=== PATIENT | female | born 1995 | race Two or more races ===

== ENCOUNTER 2016-12-15 11:46 | Emergency (ER) | payer SELFPAY ==
[2016-12-15 11:51] VITALS: BP 115/72
--- NOTE | 2016-12-15 12:37 | ER Document Report ---
ED ENT - General Chief Complaint: Sinus Congestion Stated Complaint: COUGH,CONGESTION Time Seen by Provider: 12/15/16 12:17 Mode of Arrival: Ambulatory Information source: Patient Notes: 21 2 [age] year-old female presents to ED for cough cold congestion since Monday. Have a pack a day. She has been taken Tylenol sinus and Sudafed PE. TRAVEL OUTSIDE OF THE [place] IN LAST 30 DAYS: No - HPI Patient complains to provider of: Nose problem Onset: Other - Monday Onset/Duration: Gradual, Persistent Quality of pain: Achy Severity: Moderate Pain Level: 2 Location of pain: Nose, Sinus Associated symptoms: Cough, Runny nose, Sinus drainage Similar symptoms previously: Yes Recently seen / treated by doctor: No - Related Data Allergies/Adverse Reactions: No Known Allergies Allergy (Verified 12/15/16 12:29) Past Medical History - General Information source: Patient - Social History Smoking Status: Current Every Day Smoker Cigarette use (# per day): Yes - Half a pack a day Chew tobacco use (# tins/day): No Smoking Education Provided: Yes - Less than 1 minute Frequency of alcohol use: Occasional Drug Abuse: None Occupation: [employer] Lives with: Alone Family History: Arthritis, Hypertension, Malignancy Patient has suicidal ideation: No Patient has homicidal ideation: No - Past Medical History Cardiac Medical History: Reports: None Pulmonary Medical History: Reports: Hx Bronchitis EENT Medical History: Reports: None Neurological Medical History: Reports: None Endocrine Medical History: Reports: None Renal/ Medical History: Reports: None Malignancy Medical History: Reports: None GI Medical History: Reports: None Musculoskeltal Medical History: Reports None Skin Medical History: Reports None Psychiatric Medical History: Reports: None Traumatic Medical History: Reports: None Infectious Medical History: Reports: None Past Surgical History: Reports: Hx Oral Surgery, Other - Dr. face surgery 2 - Immunizations Hx Diphtheria, Pertussis, Tetanus Vaccination: Yes Review of Systems - Review of Systems Constitutional: Recent illness EENT: Nose discharge, Sinus discharge Cardiovascular: No symptoms reported Respiratory: Cough Gastrointestinal: No symptoms reported Genitourinary: No symptoms reported Female Genitourinary: No symptoms reported Musculoskeletal: No symptoms reported Skin: No symptoms reported Hematologic/Lymphatic: No symptoms reported Neurological/Psychological: No symptoms reported -: Yes All other systems reviewed and negative Physical Exam - Vital signs Vitals: Temp Pulse Resp BP Pulse Ox 97.8 F 87 18 115/72 96 12/15/16 11:49 12/15/16 11:49 12/15/16 11:49 12/15/16 11:49 12/15/16 11:49 Interpretation: Normal - General General appearance: Appears well, Alert - HEENT Head: Normocephalic, Atraumatic Eyes: Normal Pupils: PERRL Ears: Normal External canal: Normal Tympanic membrane: Normal Sinus: Normal Nasal: Purulent discharge, Swelling Mouth/Lips: Normal Pharynx: Post nasal drainage Neck: Normal - Respiratory Respiratory status: No respiratory distress Chest status: Nontender Breath sounds: Normal Chest palpation: Normal - Cardiovascular Rhythm: Regular Heart sounds: Normal auscultation Murmur: No - Abdominal Inspection: Normal Distension: No distension Bowel sounds: Normal Tenderness: Nontender Organomegaly: No organomegaly - Back Back: Normal, Nontender - Extremities General upper extremity: Normal inspection, Nontender, Normal color, Normal ROM , Normal temperature General lower extremity: Normal inspection, Nontender, Normal color, Normal ROM , Normal temperature, Normal weight bearing. No: Cailin's sign - Neurological Neuro grossly intact: Yes Cognition: Normal Orientation: AAOx4 [place] Coma Scale Eye Opening: Spontaneous [place] Coma Scale Verbal: Oriented [place] Coma Scale Motor: Obeys Commands Alejandro Coma Scale Total: 15 Speech: Normal Motor strength normal: LUE, RUE, LLE, RLE Sensory: Normal - Psychological Associated symptoms: Normal affect, Normal mood - Skin Skin Temperature: Warm Skin Moisture: Dry Skin Color: Normal Course - Vital Signs Vital signs: Temp Pulse Resp BP Pulse Ox 97.8 F 87 18 115/72 96 12/15/16 11:49 12/15/16 11:49 12/15/16 11:49 12/15/16 11:49 12/15/16 11:49 Discharge - Discharge Clinical Impression: Upper respiratory infection Qualifiers: URI type: unspecified URI Qualified Code(s): J06.9 - Acute upper respiratory infection, unspecified Condition: Stable Disposition: HOME, SELF-CARE Instructions: Family Physicians / Practices Additional Instructions: UPPER RESPIRATORY ILLNESS: You have a viral infection of the respiratory passages -- a "cold." This common infection causes nasal congestion, drainage, and often sore throat and cough. It is highly contagious. The disease usually lasts about 10 to 14 days. There is no "cure" for the viral infection -- it must run its course. If there is a complication, such as bacterial infection in the nose, sinuses, middle ear, or bronchial tubes, antibiotics may be required. The antibiotics won't affect the virus. Drink plenty of fluids. A humidifier may help. An expectorant medication or decongestant may make you more comfortable. Use acetaminophen or ibuprofen for fever or aches. See the doctor if fever persists over two days, if there is any significant worsening of your symptoms, or if you simply fail to improve as expected. DECONGESTANT MEDICATION: A decongestant medicine has been prescribed. Often this medicine is combined in the same tablet with an antihistamine or expectorant. This type of medicine is helpful in treating a bad cold or sinus condition, as well as in treatment of the nasal congestion of hay fever. It is not of much benefit for lung infections. Decongestant medicines are related to stimulants. They can cause an increase in blood pressure and heart rate. Persons with heart disease and high blood pressure should not take decongestants without discussing this with the physician. If you develop palpitations, chest pain, headache, or tremors, stop the medicine and consult your physician. COUGH-SUPPRESSANT & EXPECTORANT MEDICATION: You are to use a cough medication as needed for relief of symptoms. This medicine is a combination of an expectorant (to make the mucous thinner and more easily "coughed up") and a cough suppressant (to reduce the frequency of coughing). The cough-suppressant medicine is related to narcotics. You may experience mild nausea and sleepiness. Some patients who are very sensitive to narcotics may have stomach pain from this medicine. Taking the medicine with food reduces these side effects. Do not drive or work with machinery until you know how this medicine affects you. The expectorant should have no side effects. Iodine-containing expectorants (such as organidin) should not be taken by persons with active thyroid disease unless approved by your doctor. Call the doctor if you develop shortness of breath, hives, rash, itching, lightheadedness, or severe nausea and vomiting. USE OF ACETAMINOPHEN (Tylenol): Acetaminophen may be taken for pain relief or fever control. It's much safer than aspirin, offering a wider range of "safe" dosages. It is safe during . Some brand names are Tylenol, Panadol, Datril, Anacin 3, Tempra, and Liquiprin. Acetaminophen can be repeated every four hours. The following are maximum recommended dosages: >89 pounds or adults 650 mg to 900 mg Acetaminophen can be repeated every four hours. Maximum dose not to exceed 4000 mg a day. SMOKING: If you smoke, you should stop smoking. The tar and chemicals in cigarette smoke are harmful. Smoking has been shown to cause: emphysema chronic bronchitis lung cancer mouth and throat cancer stomach and pancreas cancer premature aging defects In addition, smoking increases ear and lung infections in children of smokers. FOLLOW-UP CARE: If you have been referred to a physician for follow-up care, call the physician s office for an appointment as you were instructed or within the next two days. If you experience worsening or a significant change in your symptoms, notify the physician immediately or return to the Emergency Department at any time for re-evaluation. Forms: Smoking Cessation Education, Return to Work
== END 2016-12-15 12:35 | disposition home or self-care (01) ==
LOC: ER 11:46
DX: J06.9 Acute upper respiratory infection, unspecified (principal); J34.89 Other specified disorders of nose and nasal sinuses; F17.210 Nicotine dependence, cigarettes, uncomplicated
CPT/HCPCS: 99283

== ENCOUNTER 2017-12-16 11:42 | Inpatient (IN) | payer SELFPAY ==
[2017-12-16] MEDS ORDERED: ONDANSETRON HCL INJ/PF 4 MG/2 ML SDV IV ONE ×2 (11:57→16:54)
--- NOTE | 2017-12-16 11:59 | ER Document Report ---
ED Medical Screen (RME) - General Chief Complaint: Nausea/Vomiting/Diarrhea Stated Complaint: VOMITING,DIARRHEA Time Seen by Provider: 12/16/17 11:53 Mode of Arrival: Ambulatory Information source: Patient Notes: 22-year-old female who injects fentanyl presents with complaints of nausea vomiting not being able to hold anything down. Patient states she used 3 days ago I have greeted and performed a rapid initial assessment of this patient. A comprehensive ED assessment and evaluation of the patient, analysis of test results and completion of the medical decision making process will be conducted by additional ED providers. PHYSICAL EXAMINATION: GENERAL: Frail-appearing female hypotensive HEAD: Atraumatic, normocephalic. EYES: Pupils equal round extraocular movements intact, conjunctiva are normal. ENT: Nares patent NECK: Normal range of motion Heart tachycardic but no murmur noted LUNGS: No respiratory distress Musculoskeletal: Normal range of motion NEUROLOGICAL: Normal speech, normal gait. PSYCH: Normal mood, normal affect. SKIN: Warm, Dry, normal turgor, no rashes or lesions noted. TRAVEL OUTSIDE OF THE [place] IN LAST 30 DAYS: No - Related Data Allergies/Adverse Reactions: No Known Allergies Allergy (Verified 12/16/17 11:43) Past Medical History Pulmonary Medical History: Reports: Hx Bronchitis Renal/ Medical History: Denies: Hx Peritoneal Dialysis Past Surgical History: Reports: Hx Oral Surgery, Other - Dr. face surgery 2 - Immunizations Hx Diphtheria, Pertussis, Tetanus Vaccination: Yes
--- NOTE | 2017-12-16 12:10 | ER Document Report ---
ED GI/ - General Chief Complaint: Nausea/Vomiting/Diarrhea Stated Complaint: VOMITING,DIARRHEA Time Seen by Provider: 12/16/17 11:53 Mode of Arrival: Ambulatory Information source: Patient Notes: 22-year-old normally healthy female IV fentanyl user injected afternoon that was witnessed by a friend to make sure she stays safe and became delirious with vomiting and diarrhea. She is dry heaving with persistent diarrhea today. She has a bilateral temporal frontal headache. She thinks she had a fever. She has mild shortness of breath that is not any worse when she lays down. She is tearful and wants to get off opiates, denies suicide ideation. 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 Hx "elevated BPM-- states heartrate.". Has tampon in because she started being bleeding but she is not sure where it is coming from. Denies STD history or risk of STD. No pelvic pain or discharge. BP ius now 103 systolic with IV infusing. EKG shows a rate of 98 normal sinus rhythm QT intervals 348 and QTc is 445. No dysuria but hx pyelonephritis. TRAVEL OUTSIDE OF THE [place] IN LAST 30 DAYS: No - Related Data Allergies/Adverse Reactions: No Known Allergies Allergy (Verified 12/16/17 12:19) Past Medical History - General Information source: Patient - Social History Smoking Status: Current Every Day Smoker Drug Abuse: None Lives with: Family Family History: Arthritis, Hypertension, Malignancy Pulmonary Medical History: Reports: Hx Bronchitis Renal/ Medical History: Denies: Hx Peritoneal Dialysis Past Surgical History: Reports: Hx Oral Surgery, Other - Dr. face surgery 2 - Immunizations Hx Diphtheria, Pertussis, Tetanus Vaccination: Yes Review of Systems - Review of Systems Constitutional: See HPI EENT: No symptoms reported Cardiovascular: No symptoms reported Respiratory: No symptoms reported Gastrointestinal: See HPI Genitourinary: No symptoms reported Female Genitourinary: No symptoms reported Musculoskeletal: No symptoms reported Skin: No symptoms reported Hematologic/Lymphatic: No symptoms reported Neurological/Psychological: See HPI Physical Exam - Vital signs Vitals: Temp Pulse Resp BP Pulse Ox 98.1 F 125 H 18 80/53 L 98 12/16/17 11:51 12/16/17 11:51 12/16/17 11:51 12/16/17 11:51 12/16/17 11:51 Interpretation: Hypotensive, Tachycardic - General General appearance: Alert Notes: pale - HEENT Head: Normocephalic, Atraumatic Eyes: Normal Conjunctiva: Normal. No: Icteric Pupils: PERRL Mucous membranes: Normal Pharynx: Erythema Neck: Supple. No: Lymphadenopathy - Respiratory Respiratory status: No respiratory distress Chest status: Nontender Breath sounds: Normal Chest palpation: Normal - Cardiovascular Rhythm: Regular Heart sounds: Normal auscultation Murmur: No Friction rub: No - Abdominal Inspection: Normal Distension: No distension Bowel sounds: Normal Tenderness: Nontender. No: Tender Organomegaly: No organomegaly. No: Hepatomegaly, Splenomegaly - Back Back: Normal, Nontender. No: CVA tenderness - Extremities General upper extremity: Normal inspection, Nontender, Normal color, Normal ROM , Normal temperature General lower extremity: Normal inspection, Nontender, Normal color, Normal ROM , Normal temperature, Normal weight bearing. No: Cailin's sign - Neurological Neuro grossly intact: Yes Cognition: Normal Orientation: AAOx4 Alej[place] Coma Scale Eye Opening: Spontaneous [place] Coma Scale Verbal: Oriented Alejandro Coma Scale Motor: Obeys Commands [place] Coma Scale Total: 15 Speech: Normal Motor strength normal: LUE, RUE, LLE, RLE Sensory: Normal - Psychological Associated symptoms: Normal affect, Normal mood - Skin Skin Temperature: Warm Skin Moisture: Dry Skin Color: Normal Skin irregularity: negative: Rash Notes: no abscess at forearm injection sites Course - Re-evaluation Re-evalutation: 12/16/17 12:44 Blood on the tampon with a small clot. Not malodorous. Liver enzymes are elevated. White Count is 21,000, lactic acid is 4.2 the antibiotics have been ordered. Echocardiogram and right upper quadrant has been ordered. Dr. Villalobos agrees to read the echocardiogram. 12/16/17 15:11 Chlamydia is positive we will treat with azithromycin . Spoke with Dr. Farrar over the phone and she said to do a pelvic states to give to doses of a azithromycin 1000 mg IV . if there is no mucopurulent discharge she does not believe that there is a pelvic inflammatory disease. The patient denies intercourse for a year. She had chlamydia with her ex-boyfriend a year ago and was given antibiotics but she vomited them up. Gonorrhea is negative. I will do a pelvic exam on the patient. The patient got up to go to the bathroom and smoked half of the cigarette that she had in the right upper quadrant with a data reviewer. I have retrieve these from the patient and told her that she could not smoke in the emergency department. She feels warm I will have her temperature taken. 12/16/17 16:11 Vaginal bleeding on pelvic exam but no cervical motion tenderness and no mucopurulent discharge. 12/16/17 16:[address] wallace about the echo result. pt is now flushed, feels warm. temp 98.9 , pt feels "feverish". left message. 12/16/17 16:[address] wallace again. he said he will call me with the results. 12/16/17 17:42 Call the draw bench operator back and Dr. Villalobos spoke with the field evidence technician at [phone]. 12/16/17 17:49 Dr. Villalobos called back and stated that the echo showed some mild mitral valve prolapse. 12/16/17 18:00 Dr. Meredith will admit to IMCU for sepsis. Patient is drinking some jackelyn ho and eating crackers. 12/16/17 18:00 - Vital Signs Vital signs: Temp Pulse Resp BP Pulse Ox 98.9 F 125 H 20 107/54 L 94 12/16/17 16:06 12/16/17 11:51 12/16/17 17:14 12/16/17 17:14 12/16/17 17:14 - Laboratory Result Diagrams: 12/16/17 12:15 12/16/17 12:15 Laboratory results interpreted by me: 12/16/17 12/16/17 12/16/17 12:15 12:15 12:15 WBC 21.6 H RDW 14.2 H Plt Count 126 L Seg Neuts % (Manual) 90 H Lymphocytes % (Manual) 2 L Abs Neuts (Manual) 20.5 H Abs Lymphs (Manual) 0.4 L PT 16.1 H Potassium 3.5 L BUN 33 H Est GFR (Non-Af Amer) 55 L Glucose 127 H Lactic Acid Direct Bilirubin 0.5 H AST 163 H ALT 252 H Alkaline Phosphatase 294 H Chlamydia DNA (PCR) 12/16/17 12/16/17 12:15 13:23 WBC RDW Plt Count Seg Neuts % (Manual) Lymphocytes % (Manual) Abs Neuts (Manual) Abs Lymphs (Manual) PT Potassium BUN Est GFR (Non-Af Amer) Glucose Lactic Acid 4.2 H Direct Bilirubin AST ALT Alkaline Phosphatase Chlamydia DNA (PCR) DETECTED H Discharge - Discharge Clinical Impression: IV Fentanyl user (street powder), Elevated liver enzymes, Vomiting and diarrhea Sepsis Qualifiers: Sepsis type: sepsis due to unspecified organism Qualified Code(s): A41.9 - Sepsis, unspecified organism Condition: Stable Disposition: ADMITTED INPATIENT Admitting Provider: Hospitalist Unit Admitted: [facility]
[2017-12-16] MEDS: NORMAL SALINE 1000 ML 1,000 ML IV PRN ×2 (12:12→12:13)
--- NOTE | 2017-12-16 12:35 | RADIOLOGY REPORT (SQ) ---
EXAM DESCRIPTION: CHEST SINGLE VIEW COMPLETED DATE/TIME: 12/16/2017 12:26 pm REASON FOR STUDY: tachym hypotension iv drug user COMPARISON: 05/22/2016 EXAM PARAMETERS: NUMBER OF VIEWS: One view. TECHNIQUE: Single frontal radiographic view of the chest acquired. RADIATION DOSE: NA LIMITATIONS: None. FINDINGS: LUNGS AND PLEURA: No opacities, masses or pneumothorax. No pleural effusion. MEDIASTINUM AND HILAR STRUCTURES: No masses. Contour normal. HEART AND VASCULAR STRUCTURES: Heart normal in size. Normal vasculature. BONES: No acute findings. HARDWARE: None in the chest. OTHER: No other significant finding. IMPRESSION: NO ACUTE RADIOGRAPHIC FINDING IN THE CHEST. TECHNICAL DOCUMENTATION: JOB ID: [id number] [employer]- All Rights Reserved Reading location - IP/workstation name: [email or web address]
[2017-12-16 12:39] LABS: VENOUS BLOOD BASE EXCESS -2.8 mmol/L; VENOUS BLOOD HCO3 21.8 mmol/L (20-32); VENOUS BLOOD PCO2 37.4 mmHg (35-63); VENOUS BLOOD PH 7.38 (7.30-7.42)
[2017-12-16 12:41] LABS: HEMATOCRIT 38.7 % (36.0-47.0); HEMOGLOBIN 13.1 g/dL (12.0-15.5); MEAN CORPUSCULAR HEMOGLOBIN 28.4 pg (27.0-33.4); MEAN CORPUSCULAR HGB CONC 33.7 g/dL (32.0-36.0); MEAN CORPUSCULAR VOLUME 84 fl (80-97); PLATELET COUNT 126 10^3/uL (150-450); RED CELL DISTRIBUTION WIDTH 14.2 % (11.5-14.0); WHITE BLOOD COUNT 21.6 10^3/uL (4.0-10.5)
[2017-12-16 12:42] LABS: INTERNATIONAL RATION (INR) 1.23; PROTHROMBIN TIME 16.1 SEC (11.4-15.4)
[2017-12-16 12:50] LABS: ALANINE AMINOTRANSFERASE 252 U/L (9-52); ALBUMIN 3.7 g/dL (3.5-5.0); ALKALINE PHOSPHATASE 294 U/L (38-126); ANION GAP 14 (5-19); ASPARTATE AMINO TRANSFERASE 163 U/L (14-36); BILIRUBIN,DIRECT 0.5 mg/dL (0.0-0.4); BLOOD UREA NITROGEN 33 mg/dL (7-20); CALCIUM 8.5 mg/dL (8.4-10.2); CARBON DIOXIDE 23 mmol/L (22-30); CHLORIDE 101 mmol/L (98-107); GLUCOSE 127 mg/dL (75-110); POTASSIUM 3.5 mmol/L (3.6-5.0); SODIUM 138.1 mmol/L (137-145); TOTAL PROTEIN 6.7 g/dL (6.3-8.2)
[2017-12-16] MEDS ORDERED: VANCOMYCIN HCL INJ 1000 MG VIAL IV ONE (12:55)
[2017-12-16] MEDS ORDERED: GENTAMICIN SULFATE INJ 80 MG/2 ML VIAL IV ONE (12:56)
[2017-12-16 12:59] LABS: APPEARANCE,URINE SLIGHTLY-CLOUDY; BILIRUBIN,URINE NEGATIVE (NEGATIVE); COLOR,URINE YELLOW; GLUCOSE, URINE NEGATIVE (NEGATIVE); KETONES,URINE NEGATIVE (NEGATIVE); LEUKOCYTE ESTERASE,URINE NEGATIVE (NEGATIVE); NITRITE,URINE NEGATIVE (NEGATIVE); PROTEIN,URINE NEGATIVE (NEGATIVE); URINE SPECIFIC GRAVITY 1.009; UROBILINOGEN,URINE NEGATIVE mg/dL (<2.0)
[2017-12-16 13:09] LABS: ABSOLUTE LYMPHOCYTES# (MANUAL) 0.4 10^3/uL (0.5-4.7); ABSOLUTE MONOCYTES # (MANUAL) 0.6 10^3/uL (0.1-1.4); ABSOLUTE NEUTROPHILS# (MANUAL) 20.5 10^3/uL (1.7-8.2); BAND NEUTROPHILS % (MANUAL) 5 % (3-5); BASOPHILS % (MANUAL) 0 % (0-2); EOSINOPHILS % (MANUAL) 0 % (0-6); LYMPHOCYTES % (MANUAL) 2 % (13-45); MONOCYTES % (MANUAL) 3 % (3-13); SEGMENTED NEUTROPHILS % (MAN) 90 % (42-78); TOTAL CELLS COUNTED 100
[2017-12-16 13:10] LABS: ANISOCYTOSIS SLIGHT; POIKILOCYTOSIS SLIGHT; TOXIC GRANULATION SLIGHT; TOXIC VACUOLATION PRESENT
[2017-12-16 13:11] LABS: OVALOCYTES SLIGHT; PLATELET COMMENT ADEQUATE
[2017-12-16] MEDS ORDERED: CEFEPIME 2 GM/D5W RTU 2 GM/50 ML RTUPB IV SCH ×2 (13:15→22:00)
[2017-12-16] MEDS ORDERED: NORMAL SALINE 1000 ML 1,000 ML IV ONE ×2 (13:24→13:37)
[2017-12-16 13:43] LABS: BACTERIA (WET MOUNT) 3+ BACTERIA SEEN; EPITHELIALS (WET MOUNT) 3+ EPITHELIALS SEEN; RBCS (WET MOUNT) 3+ RBCS SEEN; T.VAGINALIS (WET MOUNT) NO TRICHOMONAS SEEN; WBCS (WET MOUNT) 1+ WBCS SEEN; YEAST (WET MOUNT) NO YEAST SEEN
--- NOTE | 2017-12-16 13:54 | RADIOLOGY REPORT (SQ) ---
EXAM DESCRIPTION: U/S ABDOMEN LIMITED W/O DOP COMPLETED DATE/TIME: 12/16/2017 1:45 pm REASON FOR STUDY: elevated liver enzymeslk, vomiting and diarrhea, COMPARISON: None. TECHNIQUE: Dynamic and static grayscale images acquired of the abdomen and recorded on PACS. Joyceo massimo selected color Doppler and spectral images recorded. LIMITATIONS: None. FINDINGS: PANCREAS: No masses. Visualized pancreatic duct normal caliber. LIVER: No masses. Echotexture normal. LIVER VASCULATURE: Normal directional flow of the main portal vein and hepatic veins. GALLBLADDER: Not visualized. ULTRASOUND-DETECTED GUERRA'S SIGN: Negative. INTRAHEPATIC DUCTS AND COMMON DUCT: CBD and intrahepatic ducts normal caliber. No filling defects. INFERIOR VENA CAVA: Normal flow. AORTA: No aneurysm. RIGHT KIDNEY: Normal size. Normal echogenicity. No solid or suspicious masses. No hydronephrosis. No calcifications. PERITONEAL AND RIGHT PLEURAL SPACE: No ascites or effusions. OTHER: No other significant findings. IMPRESSION: NORMAL RIGHT UPPER QUADRANT ULTRASOUND. GALLBLADDER NOT VISUALIZED. TECHNICAL DOCUMENTATION: JOB ID: [id number] [employer]- All Rights Reserved Reading location - IP/workstation name: [email or web address]
[2017-12-16] MEDS ORDERED: CEFEPIME 2 GM/D5W RTU 2 GM/50 ML RTUPB IV ONE (14:00)
[2017-12-16 15:03] LABS: CHLAM PCR DETECTED (NOT DETECT); GON PCR NOT DETECTED (NOT DETECT)
[2017-12-16] MEDS ORDERED: AZITHROMYCIN INJ 500 MG VIAL IV ONE (15:12)
[2017-12-16] MEDS ORDERED: KETOROLAC TROMETHAMINE INJ/PF 30 MG/1 ML SDV IV ONE (16:10)
--- NOTE | 2017-12-16 17:31 | EKG REPORT ---
SEVERITY:- BORDERLINE ECG - SINUS RHYTHM INFERIOR Q WAVES, PROBABLY NORMAL VARIATION : Confirmed by: Royal Andrade 16-Dec-2017 17:30:41
[2017-12-16] MEDS ORDERED: ONDANSETRON 4 MG TAB.RAPDIS PO PRN (18:38)
[2017-12-16] MEDS ORDERED: IPRATROPIUM/ALBUTEROL 0.5-2.5 MG/3 ML AMPUL NEB PRN (18:38)
[2017-12-16] MEDS ORDERED: ONDANSETRON HCL INJ/PF 4 MG/2 ML SDV IV PRN (18:38)
[2017-12-16] MEDS ORDERED: PROMETHAZINE HCL 25 MG TABLET PO PRN (18:38)
[2017-12-16] MEDS ORDERED: VANCOMYCIN HCL 0 MG in DEXTROSE 5%-WATER 250 ML IV NR (18:45)
[2017-12-16] MEDS ORDERED: MEROPENEM 1 GM VIAL IV PRN (18:54)
--- NOTE | 2017-12-16 18:55 | XCELERA REPORT ---
[address] [address] Transthoracic Echocardiogram Report Name: KATY RIOS Age: 22 yrs Gender: Female : 1995 Patient Status: Emergency Patient Location: ER Study Date: 12/16/2017 02:12 PM Height: 68 in Weight: 121 lb BSA: 1.7 m2 Procedure: A two-dimensional transthoracic echocardiogram with color flow and Doppler was performed. The study was technically difficult with many images being suboptimal in quality. Reason For Study: endocarditis History: endocarditis. Ordering Physician: KIMBERLY BYNUM Performed By: Luciano Blood Interpretation Summary Recommend MELO if clinical suspicion for '[id number]' is high. The left ventricle is normal in size. There is normal left ventricular wall thickness. LV EF is > than 60% Left ventricular systolic function is normal. Doppler measurements suggest normal left ventricular diastolic function The left ventricular wall motion is normal. There is no ventricular septal defect visualized. The right ventricle is normal in size and function. The right atrium is normal. The left atrial size is normal. The interatrial septum is intact with no evidence for an atrial septal defect. There is mild mitral valve prolapse. There is no mitral valve stenosis. There is no mitral regurgitation noted. The aortic valve is trileaflet. There is no aortic valvular vegetation. There is no aortic valve stenosis There is no LVOT obstruction. No aortic regurgitation is present. There is no tricuspid stenosis. There is no tricuspid valve vegetation. There is a trace amount of tricuspid regurgitation RVSP is 32 mm of Hg ,with RA mean of 5 , hence no significant pulmonary hypertension. There is no pulmonic valvular stenosis. There is a trace amount of pulmonic regurgitation There is no vegetation on the pulmonic valve. Minimal pericardial effusion. There are no echocardiographic or Doppler indications for cardiac tamponade Recommend MELO if clinical suspicion for '[id number]' is high. MMode/2D Measurements & Calculations RVDd: 2.1 cm LVIDd: 4.2 cm FS: 32.5 % Ao root diam: 2.7 cm IVSd: 0.69 cm LVIDs: 2.8 cm EDV(Teich): 77.4 ml LVPWd: 0.90 cmESV(Teich): 30.0 ml Ao root area: 5.8 cm2 EF(Teich): 61.3 % LA dimension: 2.4 cm LVOT diam: 2.0 cm LVOT area: 3.2 cm2 Doppler Measurements & Calculations MV E max barry: MV P1/2t max barry: Ao V2 max: LV V1 max P.7 cm/sec 123.8 cm/sec 133.7 cm/sec 2.5 mmHg MV A max barry: MV P1/2t: 47.0 msec Ao max PG: LV V1 max: 54.4 cm/sec MVA(P1/2t): 4.7 cm2 7.2 mmHg 78.8 cm/sec MV E/A: 1.6 MV dec slope: KIRA(V,D): 1.9 cm2 771.0 cm/sec2 MV dec time: 0.20 sec PA V2 max: TR max barry: 103.7 cm/sec 256.9 cm/sec PA max PG: TR max P.4 mmHg 4.3 mmHg Left Ventricle The left ventricle is normal in size. There is normal left ventricular wall thickness. LV EF is > than 60%. Left ventricular systolic function is normal. Doppler measurements suggest normal left ventricular diastolic function. The left ventricular wall motion is normal. There is no thrombus. There is no ventricular septal defect visualized. Right Ventricle The right ventricle is normal in size and function. Atria The right atrium is normal. The left atrial size is normal. The interatrial septum is intact with no evidence for an atrial septal defect. Mitral Valve There is mild mitral valve prolapse. There is no vegetation seen on the mitral valve. There is no mitral valve stenosis. There is no mitral regurgitation noted. Aortic Valve The aortic valve is trileaflet. The aortic valve opens well. There is no aortic valvular vegetation. There is no aortic valve stenosis. There is no LVOT obstruction. No aortic regurgitation is present. Tricuspid Valve There is no tricuspid valve vegetation. There is no tricuspid stenosis. There is a trace amount of tricuspid regurgitation. RVSP is 32 mm of Hg ,with RA mean of 5 , hence no significant pulmonary hypertension. Pulmonic Valve There is no vegetation on the pulmonic valve. There is no pulmonic valvular stenosis. There is a trace amount of pulmonic regurgitation. Great Vessels The aortic root is normal size. Effusions Minimal pericardial effusion. There are no echocardiographic or Doppler indications for cardiac tamponade. : KIMBERLY BYNUM > Viola Villalobos
--- NOTE | 2017-12-16 18:57 | PDOC H&P ---
History of Present Illness Admission Date/PCP: 12/16/17 18:21 No PCP Patient complains of: Vomiting, fever diarrhea History of Present Illness: KATY RIOS is a 22 year old female with a history of ongoing IV drug abuse, who has been using IV Fentanyl for the past 3 weeks regularly. In the past she has taken up to 400 mg of Oxycontin in 1 day. 3 days ago after injecting herself in the presence of a friend she became acutely delusional and then sick with fever, vomiting, generalized weakness fever and diarrhea. In the ER she was found to be septic and also had vaginal bleeding with clots. Pelvic exam done by the ER provider revealed no deborah purulence or cervical motion tenderness. She was ma cultured and treated with IV fluids, IV gent, IV azithromycin, IV vancomycin and IV cefepime. Chlamydia probe PCR was positive. Stat echo done in the ER showed mitral valve prolapse but no vegetations. Past Medical History Pulmonary Medical History: Reports: Bronchitis Past Surgical History Past Surgical History: Reports: Other - face surgery 2 Social History Information Source: Patient Lives with: Family Smoking Status: Current Every Day Smoker Frequency of Alcohol Use: Social Drugs: Heroin, Other Hx Prescription Drug Abuse: Yes - Fentanyl and Oxycontin Family History Family History: Arthritis, Hypertension, Malignancy Parental Family History Reviewed: Yes Children Family History Reviewed: Yes Sibling(s) Family History Reviewed.: Yes Medication/Allergy Home Medications: No Home Medications 12/16/17 Allergies/Adverse Reactions: No Known Allergies Allergy (Verified 12/16/17 12:19) Physical Exam Vital Signs: Temp Pulse Resp BP Pulse Ox 98.9 F 125 H 16 99/62 L 98 12/16/17 16:06 12/16/17 11:51 12/16/17 18:02 12/16/17 18:02 12/16/17 18:02 General appearance: PRESENT: disheveled, mild distress Head exam: PRESENT: normocephalic Eye exam: PRESENT: PERRLA. ABSENT: scleral icterus Ear exam: PRESENT: normal external ear exam Mouth exam: PRESENT: moist Throat exam: PRESENT: post pharyngeal erythema Neck exam: ABSENT: tracheal deviation Respiratory exam: PRESENT: symmetrical, unlabored. ABSENT: crackles Cardiovascular exam: PRESENT: RRR GI/Abdominal exam: PRESENT: normal bowel sounds, soft Rectal exam: PRESENT: deferred Musculoskeletal exam: PRESENT: normal inspection Neurological exam: PRESENT: alert, awake, oriented to person, oriented to place , oriented to time, oriented to situation Psychiatric exam: PRESENT: depressed Skin exam: ABSENT: rash Results Impressions: Chest X-Ray 12/16/17 12:11 IMPRESSION: NO ACUTE RADIOGRAPHIC FINDING IN THE CHEST. Abdomen Ultrasound 12/16/17 13:10 IMPRESSION: NORMAL RIGHT UPPER QUADRANT ULTRASOUND. GALLBLADDER NOT VISUALIZED. Assessment & Plan - Diagnosis (1) Sepsis Qualifiers: Sepsis type: sepsis due to unspecified organism Qualified Code(s): A41.9 - Sepsis, unspecified organism Is this a current diagnosis for this admission?: Yes Plan: Follow up on cultures. Continue IV fluids and broad spectrum antibiotics. Source unclear- likely skin pathogen causing bacteremia (2) Thrombocytopenia Is this a current diagnosis for this admission?: Yes Plan: due to sepsis (3) IV drug abuse Is this a current diagnosis for this admission?: Yes Plan: PSych consult requested Denies suicidal ideation or intention (4) Vaginal bleeding Is this a current diagnosis for this admission?: Yes Plan: INR normal. Director [employer] [facility] consult Urine HCG negative (5) Elevated liver enzymes Is this a current diagnosis for this admission?: Yes Plan: Due to sepsis - Time Time Spent: 50 to 70 Minutes - Inpatient Certification Medical Necessity: Need For IV Fluids, Need For Continuous Telemetry Monitoring , Need for IV Antibiotics
[2017-12-16] MEDS: POTASSI CL 20 MEQ/NS 1L 1,000 ML IV PRN (19:10)
[2017-12-16 20:08] LABS: URINE AMPHETAMINES SCREEN NEGATIVE; URINE BARBITURATES SCREEN NEGATIVE; URINE BENZODIAZEPINES SCREEN NEGATIVE; URINE COCAINE SCREEN NEGATIVE; URINE MARIJUANA (THC) SCREEN NEGATIVE; URINE METHADONE SCREEN NEGATIVE; URINE PHENCYCLIDINE SCREEN NEGATIVE
[2017-12-16] MEDS ORDERED: PANTOPRAZOLE SODIUM 40 MG VIAL IV SCH (22:00)
[2017-12-16] MEDS: OXYCODONE HCL IR 5 MG TABLET PO PRN (23:16)
[2017-12-17] MEDS: MORPHINE SULFATE 10 MG/ML INJ IV PRN ×2 (01:43→07:36)
[2017-12-17] MEDS: POTASSI CL 20 MEQ/NS 1L 1,000 ML IV PRN (01:44)
[2017-12-17] MEDS ORDERED: MEROPENEM 1 GM VIAL ONE (02:32)
[2017-12-17] MEDS ORDERED: CEFEPIME 2 GM/D5W RTU 2 GM/50 ML RTUPB IV ONE (02:32)
[2017-12-17] MEDS ORDERED: AZITHROMYCIN INJ 500 MG VIAL IV ONE (03:30)
[2017-12-17] MEDS: OXYCODONE HCL IR 5 MG TABLET PO PRN (05:05)
[2017-12-17] MEDS: MEROPENEM 1 GM in NORMAL SALINE 50 ML IV SCH ×2 (05:06→07:45)
[2017-12-17 05:08] LABS: ABSOLUTE LYMPHOCYTES (AUTO) 2.4 10^3/uL (0.5-4.7); ABSOLUTE MONOCYTES (AUTO) 0.9 10^3/uL (0.1-1.4); BASOPHILS % (AUTO) 0.1 % (0-2); EOSINOPHILS % (AUTO) 0.2 % (0-6); HEMATOCRIT 35.5 % (36.0-47.0); LYMPHOCYTES % (AUTO) 12.6 % (13-45); MEAN CORPUSCULAR HEMOGLOBIN 28.8 pg (27.0-33.4); MEAN CORPUSCULAR HGB CONC 33.7 g/dL (32.0-36.0); MEAN CORPUSCULAR VOLUME 85 fl (80-97); MONOCYTES % (AUTO) 4.9 % (3-13); PLATELET COUNT 109 10^3/uL (150-450); RED BLOOD COUNT 4.16 10^6/uL (3.72-5.28); RED CELL DISTRIBUTION WIDTH 14.3 % (11.5-14.0); SEGMENTED NEUTROPHILS % (AUTO) 82.2 % (42-78); TOTAL CELLS COUNTED % (AUTO) 100 %; WHITE BLOOD COUNT 19.4 10^3/uL (4.0-10.5)
[2017-12-17 05:31] LABS: ALANINE AMINOTRANSFERASE 168 U/L (9-52); ALKALINE PHOSPHATASE 123 U/L (38-126); ANION GAP 9 (5-19); ASPARTATE AMINO TRANSFERASE 77 U/L (14-36); BILIRUBIN,DIRECT 0.4 mg/dL (0.0-0.4); BILIRUBIN,TOTAL 0.6 mg/dL (0.2-1.3); BLOOD UREA NITROGEN 23 mg/dL (7-20); CALCIUM 8.4 mg/dL (8.4-10.2); CARBON DIOXIDE 24 mmol/L (22-30); CHLORIDE 113 mmol/L (98-107); GLUCOSE 97 mg/dL (75-110); PHOSPHORUS 2.3 mg/dL (2.5-4.5); POTASSIUM 3.6 mmol/L (3.6-5.0); SODIUM 145.5 mmol/L (137-145); TOTAL PROTEIN 5.9 g/dL (6.3-8.2)
[2017-12-17 08:36] VITALS: BP 99/48
[2017-12-17] MEDS ORDERED: AZITHROMYCIN 500 MG in DEXTROSE 5%-WATER 250 ML IV SCH (10:00)
--- NOTE | 2017-12-17 10:53 | PSYCHOLOGICAL NOTE ---
Psych Note - Psych Note Psych Note: Reason for consult Depresison and drug use. KATY RIOS is a 22 year old female with a history of ongoing IV drug abuse, who has been using IV Fentanyl for the past 3 weeks regularly. In the past she has taken up to 400 mg of Oxycontin in 1 day. 3 days ago after injecting herself in the presence of a friend she became acutely delusional and then sick with fever, vomiting, generalized weakness fever and diarrhea. Patient AMA today at 1010; patient was not seen by the behavioral health team.
--- NOTE | 2017-12-17 16:25 | PDOC DISCHARGE SUMMARY ---
General - Admit/Disc Date/PCP Admission Date/Primary Care Provider: 12/16/17 18:21 No PCP Discharge Date: 12/17/17 - Discharge Diagnosis (1) Sepsis Is this a current diagnosis for this admission?: Yes (2) Thrombocytopenia Is this a current diagnosis for this admission?: Yes (3) IV drug abuse Is this a current diagnosis for this admission?: Yes (4) Vaginal bleeding Is this a current diagnosis for this admission?: Yes (5) Elevated liver enzymes Is this a current diagnosis for this admission?: Yes - Additional Information Home Medications: No Home Medications 12/16/17 History of Present Illness History of Present Illness: KATY RIOS is a 22 year old female with a history of ongoing IV drug abuse, who has been using IV Fentanyl for the past 3 weeks regularly. In the past she has taken up to 400 mg of Oxycontin in 1 day. 3 days ago after injecting herself in the presence of a friend she became acutely delusional and then sick with fever, vomiting, generalized weakness fever and diarrhea. In the ER she was found to be septic and also had vaginal bleeding with clots. Pelvic exam done by the ER provider revealed no deborah purulence or cervical motion tenderness. She was ma cultured and treated with IV fluids, IV gent, IV azithromycin, IV vancomycin and IV cefepime. Chlamydia probe PCR was positive. Stat echo done in the ER showed mitral valve prolapse but no vegetations. I had an extensive discussion with her regarding the risks of IV drug abuse including infective endocarditis and the possible complications. 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 She did not want to go to any opiate rehab or suboxone/methadone clinic because she felt it would interfere with her work. She denied suicidal ideation or intention but admitted depression and was willing to speak to the psychology service. Hospital Course Hospital Course: The patient left AMA the next morning before I could see her. She told the nurse that she had to take care of her dog. Physical Exam Vital Signs: Temp Pulse Resp BP Pulse Ox 98.1 F 63 16 99/48 L 99 12/17/17 07:29 12/17/17 07:29 12/17/17 07:29 12/17/17 07:29 12/17/17 07:29 Intake & Output 12/16/17 12/17/17 12/18/17 06:59 06:59 06:59 Intake Total 2049 Output Total 3 Balance 2046 Weight 59.9 kg Left AMA Results Laboratory Results: 12/17/17 03:57 12/17/17 03:57 12/17/17 12/17/17 12/17/17 03:57 03:57 03:57 WBC 19.4 H RBC 4.16 Hgb 12.0 Hct 35.5 L MCV 85 MCH 28.8 MCHC 33.7 RDW 14.3 H Plt Count 109 L Seg Neutrophils % 82.2 H Lymphocytes % 12.6 L Monocytes % 4.9 Eosinophils % 0.2 Basophils % 0.1 Absolute Neutrophils 16.0 H Absolute Lymphocytes 2.4 Absolute Monocytes 0.9 Absolute Eosinophils 0.0 Absolute Basophils 0.0 Sodium 145.5 H Potassium 3.6 Chloride 113 H Carbon Dioxide 24 Anion Gap 9 BUN 23 H Creatinine 1.11 Est GFR ( Amer) > 60 Est GFR (Non-Af Amer) > 60 Glucose 97 Calcium 8.4 Phosphorus 2.3 L Magnesium 2.3 Total Bilirubin 0.6 AST 77 H ALT 168 H Alkaline Phosphatase 123 Total Protein 5.9 L Albumin 3.0 L TSH 2.44 Impressions: Chest X-Ray 12/16/17 12:11 IMPRESSION: NO ACUTE RADIOGRAPHIC FINDING IN THE CHEST. Abdomen Ultrasound 12/16/17 13:10 IMPRESSION: NORMAL RIGHT UPPER QUADRANT ULTRASOUND. GALLBLADDER NOT VISUALIZED. Qualifiers - * PATIENT BEING DISCHARGED WITH ANY OF THE FOLLOWING DIAGNOSIS: No Plan Time Spent: Less than 30 Minutes
[2017-12-18 14:39] LABS: HEPATITIS A AB IGM Negative (Negative); HEPATITIS B CORE AB IGM Negative (Negative); HEPATITS B SURFACE ANTIGEN Negative (Negative)
[2017-12-18 19:18] LABS: HEPATITIS C VIRUS ANTIBODY <0.1 s/co ratio (0.0-0.9)
== END 2017-12-17 10:10 | disposition left against medical advice (07) | DRG 872 ==
LOC: ER 11:42 → EH 18:21 → 3N 20:20
PROVIDERS: ADMIT Internal Medicine; ATTEND Internal Medicine
DX: A41.9 Sepsis, unspecified organism (principal); F11.10 Opioid abuse, uncomplicated; A74.9 Chlamydial infection, unspecified; N93.9 Abnormal uterine and vaginal bleeding, unspecified; F17.200 Nicotine dependence, unspecified, uncomplicated; D69.6 Thrombocytopenia, unspecified; R94.5 Abnormal results of liver function studies
CPT/HCPCS: 36415; 51701; 71045; 76705; 80053; 80074; 80307; 81001; 81025; 82803; 83605; 83690; 83735; 84100; 84443; 84484; 85025; 85610; 86701; 87040; 87070; 87077; 87086; 87186; 87210; 87491; 87493; 87591; 87880; 93005; 93010; 93306; 96361; 96365; 96366; 96367; 96368; 96375; 96376; 99285; J0456; J0692; J1580; J1885; J2185; J2270; J2405; J3370; J3480; J7030; S0119; S0164

== ENCOUNTER 2017-12-17 19:19 | Inpatient (IN) | payer SELFPAY ==
[2017-12-17] MEDS ORDERED: RINGERS SOLUTION,LACTATED 1,000 ML IV ONE (20:12)
[2017-12-17] MEDS ORDERED: CEFEPIME 2 GM/D5W RTU 2 GM/50 ML RTUPB IV ONE (20:13)
[2017-12-17 21:07] LABS: ABSOLUTE BASOPHILS # (AUTO) 0.1 10^3/uL (0.0-0.2); ABSOLUTE EOSINOPHILS # (AUTO) 0.2 10^3/uL (0.0-0.6); ABSOLUTE LYMPHOCYTES (AUTO) 3.2 10^3/uL (0.5-4.7); ABSOLUTE MONOCYTES (AUTO) 0.7 10^3/uL (0.1-1.4); ABSOLUTE NEUT (AUTO) 9.5 10^3/uL (1.7-8.2); BASOPHILS % (AUTO) 0.4 % (0-2); EOSINOPHILS % (AUTO) 1.2 % (0-6); HEMATOCRIT 37.3 % (36.0-47.0); HEMOGLOBIN 12.6 g/dL (12.0-15.5); LYMPHOCYTES % (AUTO) 23.6 % (13-45); MEAN CORPUSCULAR HEMOGLOBIN 28.8 pg (27.0-33.4); MEAN CORPUSCULAR HGB CONC 33.9 g/dL (32.0-36.0); MEAN CORPUSCULAR VOLUME 85 fl (80-97); MONOCYTES % (AUTO) 5.2 % (3-13); PLATELET COUNT 120 10^3/uL (150-450); RED BLOOD COUNT 4.39 10^6/uL (3.72-5.28); RED CELL DISTRIBUTION WIDTH 14.3 % (11.5-14.0); SEGMENTED NEUTROPHILS % (AUTO) 69.6 % (42-78); TOTAL CELLS COUNTED % (AUTO) 100 %; WHITE BLOOD COUNT 13.7 10^3/uL (4.0-10.5)
[2017-12-17] MEDS ORDERED: VANCOMYCIN HCL INJ 1000 MG VIAL IV ONE (21:29)
[2017-12-17 21:30] LABS: ANION GAP 8 (5-19); BLOOD UREA NITROGEN 16 mg/dL (7-20); CALCIUM 8.5 mg/dL (8.4-10.2); CARBON DIOXIDE 26 mmol/L (22-30); CHLORIDE 111 mmol/L (98-107); GLUCOSE 70 mg/dL (75-110); POTASSIUM 3.4 mmol/L (3.6-5.0); SODIUM 144.5 mmol/L (137-145)
--- NOTE | 2017-12-17 21:30 | ER Document Report ---
ED General - General Chief Complaint: Fever Stated Complaint: SKIN PROBLEM Time Seen by Provider: 12/17/17 20:09 Notes: Patient is a 22-year-old female with a past medical history of polysubstance abuse including IV drug use who left the hospital AGAINST MEDICAL ADVICE 2 hours ago from an inpatient admission for concerns of bacteremia and sepsis after she presented with fever and a lactic acidosis. The patient left apparently to take care of her dog per her report. She has returned has she states that she continues to feel very unwell at home with diffuse muscle aches , fatigue and nausea. Nothing improves or worsens her symptoms. She denies a history of similar symptoms prior the past several days. TRAVEL OUTSIDE OF THE [place] IN LAST 30 DAYS: No - Related Data Allergies/Adverse Reactions: No Known Allergies Allergy (Verified 12/16/17 12:19) Past Medical History - General Information source: Patient - Social History Smoking Status: Current Every Day Smoker Frequency of alcohol use: Occasional Drug Abuse: Heroin Lives with: Family Family History: Arthritis, Hypertension, Malignancy Pulmonary Medical History: Reports: Hx Bronchitis Renal/ Medical History: Denies: Hx Peritoneal Dialysis Psychiatric Medical History: Reports: Hx Depression Past Surgical History: Reports: Hx Oral Surgery, Other - DrKannan face surgery 2 - Immunizations Hx Diphtheria, Pertussis, Tetanus Vaccination: Yes Review of Systems - Review of Systems Notes: Constitutional: Positive positive for body aches for fever. HENT: Negative for sore throat. Eyes: Negative for visual changes. Cardiovascular: Negative for chest pain. Respiratory: Negative for shortness of breath. Gastrointestinal: Negative for abdominal pain, vomiting or diarrhea. Genitourinary: Negative for dysuria. Musculoskeletal: Negative for back pain. Skin: Negative for rash. Neurological: Negative for headaches, weakness or numbness. 10 point ROS negative except as marked above and in HPI. Physical Exam - Vital signs Vitals: Resp BP Pulse Ox 19 133/59 H 96 12/17/17 19:13 12/17/17 19:13 12/17/17 19:13 Interpretation: Normal Notes: PHYSICAL EXAMINATION: GENERAL: Thin, somewhat ill in appearance but no acute distress HEAD: Atraumatic, normocephalic. EYES: Pupils equal round and reactive to light, extraocular movements intact, sclera anicteric, conjunctiva are normal. ENT: nares patent, oropharynx clear without exudates. Moderately dry mucous membranes. NECK: Normal range of motion, supple without lymphadenopathy LUNGS: Breath sounds clear to auscultation bilaterally and equal. No wheezes rales or rhonchi. HEART: Regular rate and rhythm without murmurs ABDOMEN: Soft, nontender, normoactive bowel sounds. No guarding, no rebound. No masses appreciated. EXTREMITIES: Normal range of motion, no pitting or edema. No cyanosis. NEUROLOGICAL: No focal neurological deficits. Moves all extremities spontaneously and on command. PSYCH: Normal mood, normal affect. SKIN: Warm, Dry, normal turgor, no rashes or lesions noted. Course - Re-evaluation Re-evalutation: 12/17/17 21:28 Patient presents after leaving AGAINST MEDICAL ADVICE from inpatient admission less than 3-4 hours ago where she was hospitalized for concerns of bacteremia with associated sepsis with a history of IV drug abuse. Patient continues to be somewhat lethargic, although does speak in full sentences, alert and oriented , GCS 15. She does have track ramirez. Vital signs at time of triage show hypotension but are otherwise on. She continues to have leukocytosis although notably improved from her prior assessments. I have restarted the patient on IV fluids, IV cefepime and vancomycin as I believe her clinical improvement is likely secondary to receiving IV antibiotics she should continue these therapies. I discussed with the hospitalist for admission who has reexamined the patient for admission. - Vital Signs Vital signs: Temp Pulse Resp BP Pulse Ox 98.0 F 70 16 99/55 L 98 12/17/17 23:57 12/18/17 02:00 12/17/17 23:57 12/17/17 23:57 12/17/17 23:57 - Laboratory Result Diagrams: 12/18/17 03:45 12/18/17 03:45 Laboratory results interpreted by me: 12/17/17 12/17/17 20:57 20:57 WBC 13.7 H RDW 14.3 H Plt Count 120 L Absolute Neutrophils 9.5 H Potassium 3.4 L Chloride 111 H Glucose 70 L Discharge - Discharge Clinical Impression: IV drug abuse Sepsis Qualifiers: Sepsis type: sepsis due to unspecified organism Qualified Code(s): A41.9 - Sepsis, unspecified organism Hypotension Qualifiers: Hypotension type: unspecified hypotension type Qualified Code(s): I95.9 - Hypotension, unspecified Condition: Fair Disposition: ADMITTED INPATIENT Admitting Provider: Hospitalist Unit Admitted: Telemetry
[2017-12-17] MEDS ORDERED: ACETAMINOPHEN 325 MG TABLET PO PRN (21:44)
[2017-12-17] MEDS ORDERED: PROMETHAZINE HCL 25 MG TABLET PO PRN (21:44)
--- NOTE | 2017-12-17 21:57 | PDOC H&P ---
History of Present Illness Admission Date/PCP: 12/17/17 21:43 History of Present Illness: KATY RIOS is a 22 year old female patient admitted yesterday with diagnosis of sepsis, thrombocytopenia, IV drug abuse, vaginal bleeding and elevated liver enzymes. Agent has been on broad-spectrum antibiotics and has been doing well. She discharged herself this morning AGAINST MEDICAL ADVICE. The reason she gave for her check out AGAINST MEDICAL ADVICE is to arrange care for her dog. Her blood work shows improvement in her leukocytosis which is trending down and patient does not have new complaint. No fever, chills, nausea , vomiting, chest pain, palpitation, diaphoresis. No headache or dizziness or blurring of vision. Past Medical History Pulmonary Medical History: Reports: Bronchitis Psychiatric Medical History: Reports: Depression Past Surgical History Past Surgical History: Reports: Other - face surgery 2 Social History Smoking Status: Current Every Day Smoker Frequency of Alcohol Use: Social Hx Recreational Drug Use: Yes Drugs: Heroin Hx Prescription Drug Abuse: Yes - Advance Directive Resuscitation Status: Full Code Family History Family History: Arthritis, Hypertension, Malignancy Parental Family History Reviewed: Yes Children Family History Reviewed: Yes Sibling(s) Family History Reviewed.: Yes Medication/Allergy Home Medications: No Home Medications 12/16/17 Allergies/Adverse Reactions: No Known Allergies Allergy (Verified 12/16/17 12:19) Review of Systems Constitutional: PRESENT: as per HPI Eyes: PRESENT: as per HPI Ears: PRESENT: as per HPI Cardiovascular: PRESENT: as per HPI Respiratory: PRESENT: as per HPI Gastrointestinal: PRESENT: as per HPI Musculoskeletal: PRESENT: as per HPI Neurological: PRESENT: as per HPI Physical Exam Vital Signs: Temp Pulse Resp BP Pulse Ox 97.8 F 69 13 100/67 100 12/17/17 19:52 12/17/17 19:52 12/17/17 21:19 12/17/17 21:19 12/17/17 21:19 General appearance: PRESENT: no acute distress, well-developed, well-nourished Head exam: PRESENT: atraumatic, normocephalic Neck exam: ABSENT: carotid bruit, JVD, lymphadenopathy, thyromegaly Respiratory exam: PRESENT: clear to auscultation leah. ABSENT: rales, rhonchi, wheezes Cardiovascular exam: PRESENT: RRR. ABSENT: diastolic murmur, rubs, systolic murmur GI/Abdominal exam: PRESENT: normal bowel sounds, soft. ABSENT: distended, guarding, mass, organolmegaly, rebound, tenderness Neurological exam: PRESENT: alert, awake, oriented to person, oriented to place , oriented to time, oriented to situation, CN II-XII grossly intact. ABSENT: motor sensory deficit Psychiatric exam: PRESENT: appropriate affect, normal mood. ABSENT: homicidal ideation, suicidal ideation Assessment & Plan - Diagnosis (1) Hypotension Qualifiers: Hypotension type: unspecified hypotension type Qualified Code(s): I95.9 - Hypotension, unspecified Is this a current diagnosis for this admission?: Yes Plan: Cautious hydration (2) Sepsis Qualifiers: Sepsis type: sepsis due to unspecified organism Qualified Code(s): A41.9 - Sepsis, unspecified organism Is this a current diagnosis for this admission?: Yes Plan: I will start her on vancomycin and cefepime. - Inpatient Certification Medical Necessity: Need For IV Fluids, Need for IV Antibiotics
[2017-12-17] MEDS ORDERED: VANCOMYCIN HCL 0 MG in DEXTROSE 5%-WATER 250 ML IV NR (22:00)
[2017-12-17] MEDS ORDERED: VANCOMYCIN HCL INJ 500 MG VIAL IV PRN (22:05)
[2017-12-17] MEDS ORDERED: VANCOMYCIN HCL INJ 1000 MG VIAL IV PRN (22:05)
[2017-12-17] MEDS ORDERED: VANCOMYCIN HCL 1,500 MG in DEXTROSE 5%-WATER 250 ML IV ONE (22:15)
[2017-12-17] MEDS: NORMAL SALINE 1000 ML 1,000 ML IV PRN (22:35)
[2017-12-18] MEDS ORDERED: OXYCODONE-ACETAMINOPHEN 5-325 MG TABLET PO PRN (01:02)
[2017-12-18] MEDS ORDERED: MICAFUNGIN SODIUM INJ/PF 100 MG VIAL IV PRN (03:37)
[2017-12-18] MEDS ORDERED: MICAFUNGIN SODIUM 150 MG in NORMAL SALINE 100 ML IV ONE (03:45)
[2017-12-18 03:54] LABS: ABSOLUTE BASOPHILS # (AUTO) 0.1 10^3/uL (0.0-0.2); ABSOLUTE EOSINOPHILS # (AUTO) 0.2 10^3/uL (0.0-0.6); ABSOLUTE LYMPHOCYTES (AUTO) 3.5 10^3/uL (0.5-4.7); ABSOLUTE MONOCYTES (AUTO) 0.7 10^3/uL (0.1-1.4); ABSOLUTE NEUT (AUTO) 6.8 10^3/uL (1.7-8.2); BASOPHILS % (AUTO) 0.5 % (0-2); EOSINOPHILS % (AUTO) 2.1 % (0-6); HEMATOCRIT 32.1 % (36.0-47.0); LYMPHOCYTES % (AUTO) 31.4 % (13-45); MEAN CORPUSCULAR HEMOGLOBIN 28.9 pg (27.0-33.4); MEAN CORPUSCULAR HGB CONC 34.3 g/dL (32.0-36.0); MEAN CORPUSCULAR VOLUME 84 fl (80-97); MONOCYTES % (AUTO) 5.9 % (3-13); PLATELET COUNT 104 10^3/uL (150-450); RED BLOOD COUNT 3.81 10^6/uL (3.72-5.28); RED CELL DISTRIBUTION WIDTH 14.4 % (11.5-14.0); SEGMENTED NEUTROPHILS % (AUTO) 60.1 % (42-78); TOTAL CELLS COUNTED % (AUTO) 100 %; WHITE BLOOD COUNT 11.2 10^3/uL (4.0-10.5)
[2017-12-18 04:15] LABS: ANION GAP 7 (5-19); BLOOD UREA NITROGEN 14 mg/dL (7-20); CALCIUM 8.2 mg/dL (8.4-10.2); CARBON DIOXIDE 22 mmol/L (22-30); CHLORIDE 115 mmol/L (98-107); GLUCOSE 78 mg/dL (75-110); POTASSIUM 3.3 mmol/L (3.6-5.0); SODIUM 143.9 mmol/L (137-145)
[2017-12-18] MEDS: NORMAL SALINE 1000 ML 1,000 ML IV PRN ×2 (05:59→18:25)
[2017-12-18] MEDS: CEFEPIME 2 GM/D5W RTU 2 GM/50 ML RTUPB IV SCH ×2 (10:19→21:34)
[2017-12-18] MEDS: MICAFUNGIN SODIUM 150 MG in NORMAL SALINE 100 ML IV SCH (10:20)
[2017-12-18] MEDS: ENOXAPARIN SODIUM INJ 40 MG/0.4 ML DISP.SYRIN SUBCUT SCH (10:24)
[2017-12-18] MEDS ORDERED: IBUPROFEN 800 MG TABLET PO PRN (10:25)
[2017-12-18] MEDS ORDERED: NICOTINE 21 MG/24 HR PATCH.TD24 TD ONE (10:45)
[2017-12-18] MEDS ORDERED: LORAZEPAM 0.5 MG TABLET PO ONE (10:45)
--- NOTE | 2017-12-18 10:55 | PDOC PROGRESS REPORT ---
Subjective Progress Note for:: 12/18/17 Subjective:: The patient is an unfortunate 22-year-old female. Her past medical history is significant for ongoing IV drug abuse. She has been using IV fentanyl states that she has been using IV fentanyl for the past 3 weeks on a regular basis and that some of it was dirty. The patient just checked herself out of the hospital AGAINST MEDICAL ADVICE yesterday. She represented to the hospital to be readmitted. The advice she stated she needed to go home to deal with her dog. The patient states that approximately 3-4 days ago she was injecting herself in the presence of a friend and she became acutely delusional and then became sick with fever and vomiting and generalized weakness. She also was having diarrhea. In the emergency room the first time she was found to have a septic picture. She also was having vaginal bleeding with clots. A pelvic exam performed by the ER provider revealed no deborah purulence or cervical motion tenderness. She was pancultured and treated with IV fluids, IV gentamicin, IV azithromycin, vancomycin and cefepime. Chlamydia probe PCR was positive. The patient had a transthoracic echocardiogram performed in the emergency room that was negative for vegetations. She was noted to have some mitral valve prolapse. Shortly after admission yesterday the patient checked herself out of the hospital AMA. She re-presented to the hospital for further treatment. This morning the patient states that she feels like she is going through narcotic withdrawal. She states that she feels a little antsy and agitated and feels nauseated as well. She was initially asking for IV morphine to help her get through the withdrawal symptoms. When I went to see her I had a long discussion with her. 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 She states she feels safe in the she is not being forced to do anything that she does not want to do. She states she does use IV drugs on a regular basis and expresses a desire to stop. She states that this episode scared her and she would like to get off of the narcotics. I did explain to her that I was not going to use narcotics to detox her. We discussed the various medications that I would used to treat her symptoms and she is agreeable for now. Also 1 out of 2 blood cultures that were obtained at the time of her first admission are now positive for yeast. She has been placed on micafungin in addition to vancomycin and Zosyn. I did discuss this with her and also the fact that she is somewhat bradycardic this morning and all of her questions have been answered. Reason For Visit: SEPSIS Physical Exam Vital Signs: Temp Pulse Resp BP Pulse Ox 97.5 F 70 16 109/73 96 12/18/17 07:35 12/18/17 07:35 12/18/17 07:35 12/18/17 07:35 12/18/17 07:35 Intake & Output 12/17/17 12/18/17 12/19/17 06:59 06:59 06:59 Intake Total 1245 Balance 1245 Weight 61.7 kg General appearance: PRESENT: no acute distress, thin, well-developed, other - She does not appear to be in acute withdrawal. Head exam: PRESENT: atraumatic, normocephalic Eye exam: PRESENT: conjunctiva pink, EOMI, PERRLA. ABSENT: scleral icterus Mouth exam: PRESENT: moist, tongue midline Neck exam: ABSENT: carotid bruit, JVD, lymphadenopathy, thyromegaly Respiratory exam: PRESENT: clear to auscultation leah. ABSENT: rales, rhonchi, wheezes Cardiovascular exam: PRESENT: bradycardia. ABSENT: diastolic murmur, rubs, systolic murmur Pulses: PRESENT: normal dorsalis pedis pul GI/Abdominal exam: PRESENT: normal bowel sounds, soft. ABSENT: distended, guarding, mass, organolmegaly, rebound, tenderness Rectal exam: PRESENT: deferred Extremities exam: PRESENT: full ROM. ABSENT: calf tenderness, clubbing, pedal edema Musculoskeletal exam: PRESENT: ambulatory Neurological exam: PRESENT: alert, awake, oriented to person, oriented to place , oriented to time, oriented to situation, CN II-XII grossly intact. ABSENT: motor sensory deficit Psychiatric exam: PRESENT: appropriate affect, normal mood. ABSENT: homicidal ideation, suicidal ideation Skin exam: PRESENT: dry, intact, warm. ABSENT: cyanosis, rash Results Laboratory Results: 12/18/17 03:45 12/18/17 03:45 12/17/17 12/18/17 12/18/17 21:45 03:45 03:45 WBC 11.2 H RBC 3.81 Hgb 11.0 L Hct 32.1 L MCV 84 MCH 28.9 MCHC 34.3 RDW 14.4 H Plt Count 104 L Seg Neutrophils % 60.1 Lymphocytes % 31.4 Monocytes % 5.9 Eosinophils % 2.1 Basophils % 0.5 Absolute Neutrophils 6.8 Absolute Lymphocytes 3.5 Absolute Monocytes 0.7 Absolute Eosinophils 0.2 Absolute Basophils 0.1 Sodium 143.9 Potassium 3.3 L Chloride 115 H Carbon Dioxide 22 Anion Gap 7 BUN 14 Creatinine 0.81 Est GFR ( Amer) > 60 Est GFR (Non-Af Amer) > 60 Glucose 78 Lactic Acid 1.3 Calcium 8.2 L Assessment & Plan - Diagnosis (1) Fungemia Is this a current diagnosis for this admission?: Yes Plan: The patient has 1 out of 2 blood cultures positive for yeast. Currently on micafungin. This is the first full day of treatment. Repeat blood cultures were drawn in the emergency room yesterday. We will follow-up with these results. (2) IV drug user Is this a current diagnosis for this admission?: Yes Plan: The patient expresses a desire to get off of IV drugs. Therapy will be outlined below. She had a negative 2D echocardiogram. Will hold off for now to see what her blood cultures to do to determine whether we need to obtain a transesophageal echocardiogram. (3) Chest pain Is this a current diagnosis for this admission?: Yes Plan: We will obtain a CT angiography of the chest for further evaluation. Would be concerned for possible septic emboli in light of her ongoing IV drug use. (4) Narcotic withdrawal Is this a current diagnosis for this admission?: Yes Plan: The patient told 1 of the nursing staff yesterday as she checked out AMA that she had gotten her IV narcotic fix and was now leaving the hospital. I am not going to use narcotics to assist with her withdrawal. I have explained this at length to her. I am going to place her on clonidine twice a day. She is going to have IV Zofran available for nausea. She has by mouth ibuprofen available for pain. She will have a nicotine patch placed. I am also going to place the patient on scheduled low-dose p.o. lorazepam for agitation. She will have IV lorazepam available as well. Hopefully the patient will stay in the hospital and not checked herself out AMA again. (5) Bradycardia Is this a current diagnosis for this admission?: Yes Plan: Patient's heart rate is quite slow. We will just keep her on a remote monitor for now. (6) Elevated liver enzymes Is this a current diagnosis for this admission?: Yes Plan: Of undetermined significance at this point. Abdominal ultrasound was negative. Likely due to her acute illness and IV drug use. There is a hepatitis panel pending. She will have a liver panel drawn in the morning. (7) Vaginal bleeding Is this a current diagnosis for this admission?: Yes Plan: I will obtain a pelvic ultrasound for further evaluation. (8) Thrombocytopenia Is this a current diagnosis for this admission?: Yes Plan: Of undetermined significance at this point as well. She will have a CBC drawn in the morning. Possibly due to liver dysfunction. (9) Hypokalemia Is this a current diagnosis for this admission?: Yes Plan: This will be repleted today. She will have a chemistry panel drawn in the morning. (10) Chlamydia Is this a current diagnosis for this admission?: Yes Plan: She was treated for this in the emergency room. (11) Sepsis Is this a current diagnosis for this admission?: Yes Plan: I do not believe the patient had a septic picture at the time of admission. She does have 1 blood culture that is positive however she has no fever, no white blood cell count. She is not tachycardic. Lactic acid level was normal. Sepsis has been ruled out. (12) Full code status Is this a current diagnosis for this admission?: Yes - Time Time Spent with patient: 35 or more minutes - Inpatient Certification Medical Necessity: Need for IV Antibiotics, Other - Inpatient hospitalization remains necessary. This is an IV drug user who reportedly used dirty fentanyl. She has been maintained on parenteral antibiotics. She has 1 blood culture positive for yeast. Further workup is necessary. I suspect she will be in the hospital for the next several days.
[2017-12-18] MEDS: ONDANSETRON HCL INJ/PF 4 MG/2 ML SDV IV PRN (10:58)
--- NOTE | 2017-12-18 11:48 | RADIOLOGY REPORT (SQ) ---
EXAM DESCRIPTION: CTA CHEST COMPLETED DATE/TIME: 12/18/2017 11:19 am REASON FOR STUDY: chest pain, IV drug use COMPARISON: None. TECHNIQUE: CT scan of the chest performed using helical scanning technique with dynamic intravenous contrast injection. Images reviewed with lung, soft tissue and bone windows. Reconstructed coronal and sagittal MPR images reviewed. Additional 3 dimensional post-processing performed to develop Maximal Intensity Projection images ([place] P). All images stored on PACS. All CT scanners at this facility use dose modulation, iterative reconstruction, and/or weight based d osing when appropriate to reduce radiation dose to as low as reasonably achievable (ALARA). [facility]: Dose Right [facility]: CareDose [facility]: Dose Right [facility]: Teradose 4D [facility]: [employer] CONTRAST TYPE AND DOSE: contrast/concentration: Isovue 370.00 mg/ml; Total Contrast Delivered: 64.0 ml; Total Saline Delivered: 90.0 ml Contrast bolus optimized for the pulmonary arteries. Not diagnostic for the aorta. RENAL FUNCTION: Creatinine - 0.8 BUN=14 RADIATION DOSE: CT Rad equipment meets quality standard of care and radiation dose reduction techniq ues were employed. CTDIvol: 14.3 - 16.5 mGy. DLP: 564 mGy-cm. . LIMITATIONS: None. FINDINGS: LUNGS AND PLEURA: Multiple ground-glass attenuated nodular opacities mainly in the lower 2/3 of the lungs with some of the largest measuring 8-9 mm, may represent inflammatory changes. Smal l bilateral pleural effusions. Mild prominence of the interstitial markings mainly in the lower 2/3' s of the lungs, may be on the basis of edema or interstitial infiltrates. No pneumothorax. The cent ral airways are clear. AORTA AND GREAT VESSELS: No aneurysm. Contrast bolus not optimized for the aorta. HEART: No pericardial effusion. No significant coronary artery calcifications. PULMONARY ARTERIES: No emboli visualized in the main pulmonary arteries or the segmental branches. HILAR AND MEDIASTINAL STRUCTURES: Borderline mediastinal and hilar lymph nodes. HARDWARE: None in the chest. UPPER ABDOMEN: There are the low attenuated areas surrounding the portal vein and intrahepatic elaine l venous structures, may represent inflammatory changes. Limited exam. THYROID AND OTHER SOFT TISSUES: No masses. No adenopathy. BONES: No acute or significant finding. 3D MIPS: Confirm above findings. OTHER: No other significant finding. IMPRESSION: 1 No evidence of acute pulmonary emboli. 2 Multiple ground-glass attenuated nodular opacities mainly in the lower 2/3 of the lungs may represe nt inflammatory changes. 3. Bilateral small pleural effusions. Mild prominence of the interstitial markings in the lungs, ma inly in the lower 2/3's of the lungs, may be on the basis of edema or interstitial infiltrates. 4. Additional findings as above. COMMENT: Quality ID # [id number]: Final reports with documentation of one or more dose reduction techniques (e.g., Automated exposure control, adjustment of the mA and/or kV according to patient size, use of iterative reconstruction technique) TECHNICAL DOCUMENTATION: JOB ID: [id number] [employer]- All Rights Reserved Reading location - IP/workstation name: [email or web address]
[2017-12-18] MEDS: VANCOMYCIN HCL 750 MG in DEXTROSE 5%-WATER 250 ML IV SCH ×2 (12:39→18:24)
[2017-12-18] MEDS: LORAZEPAM 0.5 MG TABLET PO SCH ×2 (13:55→21:30)
[2017-12-18] MEDS: LORAZEPAM INJ 2 MG/1 ML VIAL IV PRN ×2 (16:07→20:13)
--- NOTE | 2017-12-18 19:59 | EKG REPORT ---
SEVERITY:- ABNORMAL ECG - SINUS RHYTHM BORDERLINE T ABNORMALITIES, ANTERIOR LEADS : Confirmed by: Viola Villalobos MD 18-Dec-2017 19:58:55
[2017-12-19] MEDS: VANCOMYCIN HCL 750 MG in DEXTROSE 5%-WATER 250 ML IV SCH ×3 (01:39→18:15)
[2017-12-19] MEDS: LORAZEPAM 0.5 MG TABLET PO SCH ×3 (06:30→21:02)
[2017-12-19 08:28] LABS: ABSOLUTE BASOPHILS # (AUTO) 0.1 10^3/uL (0.0-0.2); ABSOLUTE EOSINOPHILS # (AUTO) 0.1 10^3/uL (0.0-0.6); ABSOLUTE MONOCYTES (AUTO) 0.5 10^3/uL (0.1-1.4); ABSOLUTE NEUT (AUTO) 5.2 10^3/uL (1.7-8.2); BASOPHILS % (AUTO) 0.8 % (0-2); EOSINOPHILS % (AUTO) 1.4 % (0-6); HEMATOCRIT 34.2 % (36.0-47.0); HEMOGLOBIN 11.7 g/dL (12.0-15.5); LYMPHOCYTES % (AUTO) 33.3 % (13-45); MEAN CORPUSCULAR HEMOGLOBIN 28.9 pg (27.0-33.4); MEAN CORPUSCULAR HGB CONC 34.2 g/dL (32.0-36.0); MEAN CORPUSCULAR VOLUME 85 fl (80-97); MONOCYTES % (AUTO) 5.9 % (3-13); PLATELET COUNT 131 10^3/uL (150-450); RED BLOOD COUNT 4.04 10^6/uL (3.72-5.28); RED CELL DISTRIBUTION WIDTH 13.7 % (11.5-14.0); SEGMENTED NEUTROPHILS % (AUTO) 58.6 % (42-78); TOTAL CELLS COUNTED % (AUTO) 100 %; WHITE BLOOD COUNT 8.9 10^3/uL (4.0-10.5)
[2017-12-19 08:47] LABS: ANION GAP 10 (5-19); BLOOD UREA NITROGEN 5 mg/dL (7-20); CALCIUM 8.2 mg/dL (8.4-10.2); CARBON DIOXIDE 24 mmol/L (22-30); CHLORIDE 112 mmol/L (98-107); GLUCOSE 87 mg/dL (75-110); POTASSIUM 3.1 mmol/L (3.6-5.0); SODIUM 145.5 mmol/L (137-145)
[2017-12-19 08:48] LABS: ALANINE AMINOTRANSFERASE 96 U/L (9-52); ALBUMIN 2.8 g/dL (3.5-5.0); ALKALINE PHOSPHATASE 120 U/L (38-126); ASPARTATE AMINO TRANSFERASE 42 U/L (14-36); BILIRUBIN,DIRECT 0.2 mg/dL (0.0-0.4); BILIRUBIN,TOTAL 0.3 mg/dL (0.2-1.3); C-REACTIVE PROTEIN 31.4 mg/L (<10.0); TOTAL PROTEIN 5.5 g/dL (6.3-8.2)
[2017-12-19 10:06] LABS: ABSOLUTE EOSINOPHILS # (AUTO) 0.1 10^3/uL (0.0-0.6); ABSOLUTE LYMPHOCYTES (AUTO) 2.6 10^3/uL (0.5-4.7); ABSOLUTE MONOCYTES (AUTO) 0.5 10^3/uL (0.1-1.4); ABSOLUTE NEUT (AUTO) 5.4 10^3/uL (1.7-8.2); BASOPHILS % (AUTO) 0.5 % (0-2); EOSINOPHILS % (AUTO) 1.3 % (0-6); HEMATOCRIT 36.4 % (36.0-47.0); HEMOGLOBIN 12.4 g/dL (12.0-15.5); MEAN CORPUSCULAR HEMOGLOBIN 28.9 pg (27.0-33.4); MEAN CORPUSCULAR HGB CONC 34.2 g/dL (32.0-36.0); MEAN CORPUSCULAR VOLUME 85 fl (80-97); MONOCYTES % (AUTO) 6.2 % (3-13); PLATELET COUNT 137 10^3/uL (150-450); TOTAL CELLS COUNTED % (AUTO) 100 %; WHITE BLOOD COUNT 8.7 10^3/uL (4.0-10.5)
[2017-12-19] MEDS: ENOXAPARIN SODIUM INJ 40 MG/0.4 ML DISP.SYRIN SUBCUT SCH (10:35)
[2017-12-19] MEDS: NICOTINE 21 MG/24 HR PATCH.TD24 TD SCH (10:35)
[2017-12-19 10:40] LABS: ANION GAP 8 (5-19); BLOOD UREA NITROGEN 5 mg/dL (7-20); CALCIUM 8.3 mg/dL (8.4-10.2); CARBON DIOXIDE 26 mmol/L (22-30); CHLORIDE 111 mmol/L (98-107); GLUCOSE 89 mg/dL (75-110); POTASSIUM 3.3 mmol/L (3.6-5.0); SODIUM 145.2 mmol/L (137-145)
--- NOTE | 2017-12-19 10:44 | RADIOLOGY REPORT (SQ) ---
EXAM DESCRIPTION: U/S NON-OB PELVIS W/O DOP COMPLETED DATE/TIME: 12/19/2017 10:12 am REASON FOR STUDY: vaginal bleeding COMPARISON: None. TECHNIQUE: Dynamic and static grayscale images acquired of the pelvis via transabdominal approach an d recorded on PACS. Additional selected color Doppler and spectral images recorded. LIMITATIONS: Limited visualization. FINDINGS: UTERUS: Contour normal. No mass. ENDOMETRIAL STRIPE: No focal or generalized thickening. No masses. CERVIX: No nabothian cysts. RIGHT OVARY AND DOPPLER: Normal size. No worrisome masses. Normal arterial vascular flow without evid ence for torsion. LEFT OVARY AND DOPPLER: Ovary not visualized. FREE FLUID: Moderate free fluid. OTHER: No other significant finding. MEASUREMENTS: UTERUS: 3.0 x 3.6 x 7.3 cm. ENDOMETRIAL STRIPE: 2 mm. RIGHT OVARY: 1.8 x 2.5 x 3.4 cm. LEFT OVARY: Not visualized. IMPRESSION: LIMITED STUDY. LEFT OVARY NOT VISUALIZED. MODERATE FREE FLUID IN THE PELVIC CUL-DE-SAC . NO OTHER SIGNIFICANT FINDINGS. TECHNICAL DOCUMENTATION: JOB ID: [id number]- All Rights Reserved Reading location - IP/workstation name: [email or web address]
[2017-12-19 10:46] LABS: VANCOMYCIN,TROUGH 12.9 ug/mL (5.0-20.0)
[2017-12-19] MEDS: LORAZEPAM INJ 2 MG/1 ML VIAL IV PRN ×3 (11:04→22:15)
[2017-12-19] MEDS: CEFEPIME 2 GM/D5W RTU 2 GM/50 ML RTUPB IV SCH ×2 (12:28→21:02)
[2017-12-19] MEDS: MICAFUNGIN SODIUM 150 MG in NORMAL SALINE 100 ML IV SCH (13:08)
[2017-12-19] MEDS ORDERED: LORAZEPAM 0.5 MG TABLET PO SCH (17:05)
--- NOTE | 2017-12-19 19:30 | PDOC PROGRESS REPORT ---
Subjective Progress Note for:: 12/19/17 Subjective:: The patient is resting in her bed. I had a long talk with her today regarding goals of care and she is agreeable to staying in the hospital. I spoke to infectious disease in [place]. They believe that we need to get sensitivities back from her fungal culture. They do believe this is a true bacteria. We are checking the patient for HIV today. Overall she states she feels anxious and feels like she is going through narcotic withdrawal. She has not had any nausea or vomiting. She just feels anxious and agitated. For now she is agreed to stay in the hospital. Reason For Visit: SEPSIS Physical Exam Vital Signs: Temp Pulse Resp BP Pulse Ox 97.6 F 86 18 115/73 95 12/19/17 15:34 12/19/17 15:34 12/19/17 15:34 12/19/17 15:34 12/19/17 15:34 Intake & Output 12/18/17 12/19/17 12/20/17 06:59 06:59 06:59 Intake Total 1245 3782 1989 Balance 1245 3782 1989 Weight 61.7 kg 61.5 kg General appearance: PRESENT: no acute distress, thin Head exam: PRESENT: atraumatic, normocephalic Eye exam: PRESENT: conjunctiva pink, EOMI, PERRLA. ABSENT: scleral icterus Mouth exam: PRESENT: moist, tongue midline Respiratory exam: PRESENT: clear to auscultation leah. ABSENT: rales, rhonchi, wheezes Cardiovascular exam: PRESENT: RRR. ABSENT: diastolic murmur, rubs, systolic murmur GI/Abdominal exam: PRESENT: normal bowel sounds, soft. ABSENT: distended, guarding, mass, organolmegaly, rebound, tenderness Rectal exam: PRESENT: deferred Extremities exam: PRESENT: full ROM. ABSENT: calf tenderness, clubbing, pedal edema Musculoskeletal exam: PRESENT: ambulatory Neurological exam: PRESENT: alert, awake, oriented to person, oriented to place , oriented to time, oriented to situation, CN II-XII grossly intact. ABSENT: motor sensory deficit Psychiatric exam: PRESENT: anxious Skin exam: PRESENT: dry, intact, warm. ABSENT: cyanosis, rash Results Laboratory Results: 12/19/17 09:44 12/19/17 09:44 12/19/17 12/19/1718 07:45 07:45 07:45 WBC 8.9 RBC 4.04 Hgb 11.7 L Hct 34.2 L MCV 85 MCH 28.9 MCHC 34.2 RDW 13.7 Plt Count 131 L Seg Neutrophils % 58.6 Lymphocytes % 33.3 Monocytes % 5.9 Eosinophils % 1.4 Basophils % 0.8 Absolute Neutrophils 5.2 Absolute Lymphocytes 3.0 Absolute Monocytes 0.5 Absolute Eosinophils 0.1 Absolute Basophils 0.1 Sodium Potassium Chloride Carbon Dioxide Anion Gap BUN Creatinine Est GFR ( Amer) Est GFR (Non-Af Amer) Glucose Calcium Phosphorus 3.2 Magnesium Total Bilirubin 0.3 AST 42 H ALT 96 H Alkaline Phosphatase 120 C-Reactive Protein 31.4 H Total Protein 5.5 L Albumin 2.8 L 12/19/17 12/19/17 12/19/17 07:45 09:44 09:44 WBC 8.7 RBC 4.30 Hgb 12.4 Hct 36.4 MCV 85 MCH 28.9 MCHC 34.2 RDW 14.0 Plt Count 137 L Seg Neutrophils % 62.0 Lymphocytes % 30.0 Monocytes % 6.2 Eosinophils % 1.3 Basophils % 0.5 Absolute Neutrophils 5.4 Absolute Lymphocytes 2.6 Absolute Monocytes 0.5 Absolute Eosinophils 0.1 Absolute Basophils 0.0 Sodium 145.5 H 145.2 H Potassium 3.1 L 3.3 L Chloride 112 H 111 H Carbon Dioxide 24 26 Anion Gap 10 8 BUN 5 L 5 L Creatinine 0.66 0.72 Est GFR ( Amer) > 60 > 60 Est GFR (Non-Af Amer) > 60 > 60 Glucose 87 89 Calcium 8.2 L 8.3 L Phosphorus Magnesium 1.4 L 1.5 L Total Bilirubin AST ALT Alkaline Phosphatase C-Reactive Protein Total Protein Albumin 12/19/17 09:44 WBC RBC Hgb Hct MCV MCH MCHC RDW Plt Count Seg Neutrophils % Lymphocytes % Monocytes % Eosinophils % Basophils % Absolute Neutrophils Absolute Lymphocytes Absolute Monocytes Absolute Eosinophils Absolute Basophils Sodium Potassium Chloride Carbon Dioxide Anion Gap BUN Creatinine Cancelled Est GFR ( Amer) Cancelled Est GFR (Non-Af Amer) Cancelled Glucose Calcium Phosphorus Magnesium Total Bilirubin AST ALT Alkaline Phosphatase C-Reactive Protein Total Protein Albumin Impressions: Chest/Abdomen CTA 12/18/17 00:00 IMPRESSION: 1 No evidence of acute pulmonary emboli. 2 Multiple ground-glass attenuated nodular opacities mainly in the lower 2/3 of the lungs may represent inflammatory changes. 3. Bilateral small pleural effusions. Mild prominence of the interstitial markings in the lungs, mainly in the lower 2/3's of the lungs, may be on the basis of edema or interstitial infiltrates. 4. Additional findings as above. Pelvis Ultrasound 12/19/17 00:00 IMPRESSION: LIMITED STUDY. LEFT OVARY NOT VISUALIZED. MODERATE FREE FLUID IN THE PELVIC CUL-DE-SAC. NO OTHER SIGNIFICANT FINDINGS. Assessment & Plan - Diagnosis (1) Fungemia Is this a current diagnosis for this admission?: Yes Plan: The patient has 1 out of 2 blood cultures positive for yeast. Currently on micafungin. This is day #2 of treatment. Repeat blood cultures are negative to date. Per infectious disease she needs HIV testing which is been ordered. Also we need to await final sensitivity results. (2) IV drug user Is this a current diagnosis for this admission?: Yes Plan: The patient expresses a desire to get off of IV drugs. Therapy will be outlined below. She had a negative 2D echocardiogram. Will hold off for now to see what her blood cultures to do to determine whether we need to obtain a transesophageal echocardiogram. (3) Chest pain Is this a current diagnosis for this admission?: Yes Plan: The patient has an abnormal CT scan. No pulmonary emboli noted but she does have multiple nodular opacities which could be inflammatory in the lungs. She is currently on broad-spectrum IV antibiotic coverage which we will continue. I am going to have Dr. Castro look at her chest CT tomorrow. I am going to hold off on a formal consult. (4) Narcotic withdrawal Is this a current diagnosis for this admission?: Yes Plan: The patient told 1 of the nursing staff yesterday as she checked out AMA that she had gotten her IV narcotic fix and was now leaving the hospital. I am not going to use narcotics to assist with her withdrawal. I have explained this at length to her. She is on scheduled lorazepam with IV lorazepam available as well. She has ibuprofen available. She also has IV Zofran available. Unfortunately I cannot give her clonidine due to her bradycardia. (5) Bradycardia Is this a current diagnosis for this admission?: Yes Plan: Patient's heart rate is quite slow. We will just keep her on a remote monitor for now. (6) Elevated liver enzymes Is this a current diagnosis for this admission?: Yes Plan: Hepatitis panel was negative. This is likely due to her acute illness. (7) Vaginal bleeding Is this a current diagnosis for this admission?: Yes Plan: Pelvic ultrasound was unremarkable (8) Thrombocytopenia Is this a current diagnosis for this admission?: Yes Plan: Likely due to acute illness. Improving with treatment (9) Hypokalemia Is this a current diagnosis for this admission?: Yes Plan: This will be repleted today. She will have a chemistry panel drawn in the morning. (10) Chlamydia Is this a current diagnosis for this admission?: Yes Plan: She was treated for this in the emergency room. (11) Sepsis Is this a current diagnosis for this admission?: Yes Plan: I do not believe the patient had a septic picture at the time of admission. She does have 1 blood culture that is positive however she has no fever, no white blood cell count. She is not tachycardic. Lactic acid level was normal. Sepsis has been ruled out. (12) Full code status Is this a current diagnosis for this admission?: Yes - Time Time Spent with patient: 25-34 minutes - Inpatient Certification Medical Necessity: Other - Inpatient hospitalization remains necessary. The patient has fungemia which needs further workup. She has an abnormal CT scan of the chest and remains bradycardic. Timing of disposition will be determined by her clinical course
[2017-12-19] MEDS: ONDANSETRON HCL INJ/PF 4 MG/2 ML SDV IV PRN (21:15)
[2017-12-20] MEDS: VANCOMYCIN HCL 750 MG in DEXTROSE 5%-WATER 250 ML IV SCH ×3 (01:11→17:57)
[2017-12-20] MEDS: NORMAL SALINE 1000 ML 1,000 ML IV PRN (02:09)
[2017-12-20] MEDS: LORAZEPAM INJ 2 MG/1 ML VIAL IV PRN ×4 (02:09→18:59)
[2017-12-20 06:42] LABS: ABSOLUTE BASOPHILS # (AUTO) 0.1 10^3/uL (0.0-0.2); ABSOLUTE EOSINOPHILS # (AUTO) 0.2 10^3/uL (0.0-0.6); ABSOLUTE LYMPHOCYTES (AUTO) 3.3 10^3/uL (0.5-4.7); ABSOLUTE MONOCYTES (AUTO) 0.9 10^3/uL (0.1-1.4); ABSOLUTE NEUT (AUTO) 4.4 10^3/uL (1.7-8.2); BASOPHILS % (AUTO) 0.6 % (0-2); EOSINOPHILS % (AUTO) 2.3 % (0-6); HEMATOCRIT 34.8 % (36.0-47.0); HEMOGLOBIN 12.1 g/dL (12.0-15.5); LYMPHOCYTES % (AUTO) 37.6 % (13-45); MEAN CORPUSCULAR HEMOGLOBIN 28.8 pg (27.0-33.4); MEAN CORPUSCULAR HGB CONC 34.7 g/dL (32.0-36.0); MEAN CORPUSCULAR VOLUME 83 fl (80-97); PLATELET COUNT 147 10^3/uL (150-450); RED BLOOD COUNT 4.19 10^6/uL (3.72-5.28); RED CELL DISTRIBUTION WIDTH 13.9 % (11.5-14.0); SEGMENTED NEUTROPHILS % (AUTO) 49.5 % (42-78); TOTAL CELLS COUNTED % (AUTO) 100 %; WHITE BLOOD COUNT 8.9 10^3/uL (4.0-10.5)
[2017-12-20] MEDS: LORAZEPAM 0.5 MG TABLET PO SCH ×3 (06:54→20:44)
[2017-12-20 06:56] LABS: ANION GAP 9 (5-19); BLOOD UREA NITROGEN 4 mg/dL (7-20); CARBON DIOXIDE 28 mmol/L (22-30); CHLORIDE 108 mmol/L (98-107); GLUCOSE 98 mg/dL (75-110); SODIUM 144.8 mmol/L (137-145)
[2017-12-20] MEDS ORDERED: POTASSIUM CHLORIDE 10 MEQ TABLET.SA PO ONE (08:00)
[2017-12-20] MEDS: MAGNESIUM SULFATE/D5W 1 GM/100 ML RTUPB IV SCH ×3 (08:00→10:09)
[2017-12-20] MEDS: ENOXAPARIN SODIUM INJ 40 MG/0.4 ML DISP.SYRIN SUBCUT SCH (09:09)
[2017-12-20] MEDS: NICOTINE 21 MG/24 HR PATCH.TD24 TD SCH (10:07)
--- NOTE | 2017-12-20 11:57 | PDOC PROGRESS REPORT ---
Subjective Progress Note for:: 12/20/17 Subjective:: The patient is sitting up in her bed. She states that she is doing fairly well but just feels antsy from going through narcotic withdrawal. She has had no vomiting. No fever chills. She does continue to have chest pain. She really is not short of breath. No nausea vomiting or diarrhea. No dysuria, frequency or hematuria. The results of her CT scan were reviewed with the patient. I informally had Dr. Castro from the pulmonology service look at the scan as well. The patient has multiple groundglass nodular opacities mainly in the lower two thirds of the lung. Some of them measure up to 9 mm and represent inflammatory changes. She has prominence of the interstitial markings in the lower tooth on two thirds of the lungs as well which could be edema or interstitial infiltrates. Central airways are clear. No pulmonary embolus was noted. I discussed this at length with Dr. Castro. He is quite concerned in light of the scan that she could have endocarditis in spite of her negative transthoracic echocardiogram. He recommended transfer to a tertiary center for further evaluation of her whole overall picture. I did discuss potential transfer with the patient. She seems to have now be realizing just how sick she is. She wants to be completely treated and get on with her life. She now is expressing a desire to get off of narcotics altogether. She states that she had only been using IV narcotics for about 3-4 weeks prior to coming into the hospital. She states prior to that she was using high doses of oral narcotics. Reason For Visit: SEPSIS Physical Exam Vital Signs: Temp Pulse Resp BP Pulse Ox 98.2 F 128 H 18 105/62 98 12/20/17 07:34 12/20/17 07:34 12/20/17 07:34 12/20/17 07:34 12/20/17 07:34 Intake & Output 12/19/17 12/20/17 12/21/17 06:59 06:59 06:59 Intake Total 3782 3755 Balance 3782 3755 Weight 61.5 kg 61 kg General appearance: PRESENT: no acute distress, thin, well-developed Head exam: PRESENT: atraumatic, normocephalic Mouth exam: PRESENT: moist, tongue midline Respiratory exam: PRESENT: rhonchi Cardiovascular exam: PRESENT: RRR. ABSENT: diastolic murmur, rubs, systolic murmur GI/Abdominal exam: PRESENT: normal bowel sounds, soft. ABSENT: distended, guarding, mass, organolmegaly, rebound, tenderness Rectal exam: PRESENT: deferred Musculoskeletal exam: PRESENT: ambulatory Neurological exam: PRESENT: alert, awake, oriented to person, oriented to place , oriented to time, oriented to situation, CN II-XII grossly intact. ABSENT: motor sensory deficit Psychiatric exam: PRESENT: appropriate affect, normal mood. ABSENT: homicidal ideation, suicidal ideation Skin exam: PRESENT: dry, intact, warm. ABSENT: cyanosis, rash Results Laboratory Results: 12/20/17 06:29 12/20/17 06:29 12/20/17 12/20/17 06:29 06:29 WBC 8.9 RBC 4.19 Hgb 12.1 Hct 34.8 L MCV 83 MCH 28.8 MCHC 34.7 RDW 13.9 Plt Count 147 L Seg Neutrophils % 49.5 Lymphocytes % 37.6 Monocytes % 10.0 Eosinophils % 2.3 Basophils % 0.6 Absolute Neutrophils 4.4 Absolute Lymphocytes 3.3 Absolute Monocytes 0.9 Absolute Eosinophils 0.2 Absolute Basophils 0.1 Sodium 144.8 Potassium 3.0 L* Chloride 108 H Carbon Dioxide 28 Anion Gap 9 BUN 4 L Creatinine 0.58 Est GFR ( Amer) > 60 Est GFR (Non-Af Amer) > 60 Glucose 98 Calcium 8.0 L Magnesium 1.4 L Impressions: Chest/Abdomen CTA 12/18/17 00:00 IMPRESSION: 1 No evidence of acute pulmonary emboli. 2 Multiple ground-glass attenuated nodular opacities mainly in the lower 2/3 of the lungs may represent inflammatory changes. 3. Bilateral small pleural effusions. Mild prominence of the interstitial markings in the lungs, mainly in the lower 2/3's of the lungs, may be on the basis of edema or interstitial infiltrates. 4. Additional findings as above. Pelvis Ultrasound 12/19/17 00:00 IMPRESSION: LIMITED STUDY. LEFT OVARY NOT VISUALIZED. MODERATE FREE FLUID IN THE PELVIC CUL-DE-SAC. NO OTHER SIGNIFICANT FINDINGS. Assessment & Plan - Diagnosis (1) Fungemia Is this a current diagnosis for this admission?: Yes Plan: At this point the patient is on broad-spectrum antibiotics with IV vancomycin and cefepime. She also is on micafungin. This is day #3 of treatment. Repeat blood cultures are negative to date. She has yeast, not Bella albicans growing in 1 out of 2 blood cultures obtained on 12/17/2017. Yesterday I spoke to infectious disease in [place] regarding this finding. They recommended that she complete treatment for it and that we needed to await final sensitivities which are still pending. (2) IV drug user Is this a current diagnosis for this admission?: Yes Plan: Dr. Castro is recommending transfer to a tertiary center. The patient wants to go to [place] as her father lives near there. I have contacted [facility] and we will try to pursue transfer. I do believe she would benefit from someone from infectious disease managing this. (3) Chest pain Is this a current diagnosis for this admission?: Yes Plan: The patient has multiple abnormalities on her chest CT which is likely causing her chest pain. (4) Narcotic withdrawal Is this a current diagnosis for this admission?: Yes Plan: She does not seem to be going through acute narcotic withdrawal however she feels quite antsy and anxious. Continue lorazepam. She has ibuprofen and Zosyn available as well. (5) Bradycardia Is this a current diagnosis for this admission?: Yes Plan: The patient for the most part has remained bradycardic. However she did have some episodes of some rapid rates where her heart rate got into the 120s and 130s. This was when she was up ambulating. Her heart rate settled back down with rest. (6) Elevated liver enzymes Is this a current diagnosis for this admission?: Yes Plan: Likely due to her acute illness. (7) Vaginal bleeding Is this a current diagnosis for this admission?: Yes Plan: Resolving. Pelvic ultrasound was unremarkable. She did test positive for chlamydia which is been treated. She did have a pelvic exam in the emergency room which did not reveal any evidence of pelvic inflammatory disease. (8) Thrombocytopenia Is this a current diagnosis for this admission?: Yes Plan: Likely due to acute illness. Improving with treatment (9) Hypokalemia Is this a current diagnosis for this admission?: Yes Plan: Her level remains low. She will have it replaced today and will recheck a level in the morning. (10) Chlamydia Is this a current diagnosis for this admission?: Yes Plan: She was treated for this in the emergency room. (11) Sepsis Is this a current diagnosis for this admission?: Yes Plan: I do not believe the patient had a septic picture at the time of admission. She does have 1 blood culture that is positive however she has no fever, no white blood cell count. She is not tachycardic. Lactic acid level was normal. Sepsis has been ruled out. (12) Full code status Is this a current diagnosis for this admission?: Yes - Time Time Spent with patient: 35 or more minutes - Inpatient Certification Medical Necessity: Need for IV Antibiotics - Inpatient hospitalization remains necessary. The patient has an abnormal CT scan. She has fungemia. She is requiring parenteral therapies. I am going to try to pursue transfer to a tertiary center today. Timing of disposition will be determined by her clinical course but she likely will need to be hospitalized for quite some time. , Other
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
[2017-12-20] MEDS: MICAFUNGIN SODIUM 150 MG in NORMAL SALINE 100 ML IV SCH (14:08)
--- NOTE | 2017-12-20 16:54 | PSYCHOLOGICAL NOTE ---
Psych Note - Psych Note Psych Note: Reason for consult:IV drug use, depression Patient is alert and orientated to person, place, time and circumstance. Patient is presenting withdrawn and is observed curled up in the position. Patient appears ill and has some difficulty talking with clinician. She is able to correctly identify that she is at [facility] for a blood infection. She denies suicidal and homicidal ideation. she confirms drug use (pain pills) and is interested in sobriety. she denies any past suicide attempts. The patient currently lives alone and her parents live in [place]. While patient is presenting depressed and withdrawn, the patient is currently in medical crisis. Patient will be re-assessed once medically stable to determine appropriate mental health services.
[2017-12-20] MEDS ORDERED: CEFEPIME 2 GM/D5W RTU 2 GM/50 ML RTUPB IV SCH (18:00)
[2017-12-20 19:40] VITALS: BP 102/59
== END 2017-12-20 20:51 | disposition short-term general hospital (02) | DRG 868 ==
LOC: ER 19:19 → EH 21:43 → 3W 23:56
PROVIDERS: ADMIT Internal Medicine; ATTEND Internal Medicine
DX: B49 Unspecified mycosis (principal); F11.23 Opioid dependence with withdrawal; R50.9 Fever, unspecified; F19.10 Other psychoactive substance abuse, uncomplicated; R00.1 Bradycardia, unspecified; D69.6 Thrombocytopenia, unspecified; E87.6 Hypokalemia; A74.9 Chlamydial infection, unspecified; R74.8 Abnormal levels of other serum enzymes; N93.9 Abnormal uterine and vaginal bleeding, unspecified; F41.8 Other specified anxiety disorders; F17.210 Nicotine dependence, cigarettes, uncomplicated; F32.9 Major depressive disorder, single episode, unspecified; Z75.1 Person awaiting admission to adequate facility elsewhere
CPT/HCPCS: 36415; 71275; 76856; 80048; 80076; 80202; 83605; 83735; 84100; 85025; 85652; 86140; 86701; 86702; 87040; 93005; 93010; 96365; 99284; J0692; J1650; J2060; J2248; J2405; J3370; J3475; J7030; J7060; J7120

== ENCOUNTER 2018-09-17 05:54 | Emergency (ER) | payer SELFPAY ==
--- NOTE | 2018-09-17 06:37 | ER Document Report ---
ED General - General Stated Complaint: POSSIBLE OVERDOSE Time Seen by Provider: 09/17/18 06:19 TRAVEL OUTSIDE OF THE [place] IN LAST 30 DAYS: No - HPI Notes: Patient is a 22-year-old female that presents to the emergency department for chief complaint of overdose. Patient presented by EMS after opiate overdose. She received 2 mg of Narcan by EMS and had complete resolution of symptoms. Patient states last night she took 4 or 5 "oxys with fentanyl". Patient believes that each tablet was a crushed up 30 mg Oxy with fentanyl laced and it. Patient is not sure if it is a OxyContin or oxycodone pill. Patient also states she took 3 1 mg tablets of Xanax. She states she was taking these slowly throughout the night and did not take them all at one time. She denies any suicidal or homicidal ideation. She states that she has a high tolerance for opiates which is why she took so much. She states she was just trying to get high. She denies any alcohol ingestion yesterday. Patient states she was clean for 6 months prior to July when she relapsed. Currently she has no complaints and is requesting to go outside and smoke a cigarette. Past Medical History: History of sepsis from IV drug use Past Surgical History: Negative Social History: Daily opiates, daily tobacco, occasional alcohol Family History: Reviewed and noncontributory for presenting illness Allergies: Reviewed, see documented allergy list. REVIEW OF SYSTEMS: CONSTITUTIONAL : No fever No chills No diaphoresis No recent illness EENT: No vision changes No congestion No sore throat CARDIOVASCULAR: No chest pain No palpitations RESPIRATORY: No shortness of breath No cough No difficulty breathing GASTROINTESTINAL: No abdominal pain No nausea No vomiting No diarrhea GENITOURINARY: No dysuria No hematuria No difficulty urinating MUSCULOSKELETAL: No back pain No leg pain No arm pain SKIN: No rashes No lesions LYMPHATIC: No swollen, enlarged glands. NEUROLOGICAL: No lightheadedness No headache No weakness No paresthesias PSYCHIATRIC: No anxiety No depression PHYSICAL EXAMINATION: Vital signs reviewed, nursing noted reviewed. GENERAL: Alert, well-nourished and in no acute distress. HEAD: Atraumatic, normocephalic. EYES: Eyes appear normal, extraocular movements intact, sclera anicteric, conjunctiva are normal. ENT: nares patent, oropharynx clear without exudates. Moist mucous membranes. NECK: Normal range of motion, supple without lymphadenopathy LUNGS: Breath sounds clear to auscultation bilaterally and equal. No wheezes rales or rhonchi. HEART: Regular rate and rhythm without murmurs ABDOMEN: Soft, nontender, normoactive bowel sounds. No rebound, guarding, or rigidity. No masses appreciated. EXTREMITIES: Nontender, good range of motion, no pitting or edema. NEUROLOGICAL: No focal neurological deficits. Moves all extremities spontaneously Motor and sensory grossly intact on exam. PSYCH: Normal mood, normal affect. SKIN: Warm, Dry, normal turgor, no rashes or lesions noted on exposed skin - Related Data Allergies/Adverse Reactions: mushroom Allergy (Verified 09/17/18 06:44) Past Medical History - Social History Smoking Status: Current Every Day Smoker Family History: Arthritis, Hypertension, Malignancy Pulmonary Medical History: Reports: Hx Bronchitis Renal/ Medical History: Denies: Hx Peritoneal Dialysis Psychiatric Medical History: Reports: Hx Depression Past Surgical History: Reports: Hx Oral Surgery, Other - DrKannan face surgery 2 - Immunizations Hx Diphtheria, Pertussis, Tetanus Vaccination: Yes Physical Exam - Vital signs Vitals: Temp Pulse Resp BP Pulse Ox 97.8 F 98 17 118/92 H 100 09/17/18 05:54 09/17/18 05:54 09/17/18 05:54 09/17/18 05:54 09/17/18 05:54 Course - Re-evaluation Re-evalutation: 09/17/18 06:41 Vitals reviewed. Nursing notes reviewed. Patient placed on telemetry monitoring. She is alert and oriented at presentation and in no acute distress with no acute complaints. She did ingest a large amount of opiates in pill form. I am not sure whether these were extended release or short acting. Poison control will be notified. 09/17/18 06:58 Poison control recommended observation for 6 hours at a minimum and if patient is requiring repeat dosing of Narcan she should be admitted to the hospital. I did tell her that without knowing exactly the formulation of the medicine she took or the timing it impossible to say whether she may become unresponsive or not. I feel it is likely that her ingestion will outlast the Narcan since she also has benzodiazepines in her system. 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 She is currently mentating normally. She is able to ambulate without any difficulty and has no slurred speech. She understands the risks of leaving the hospital AGAINST MEDICAL ADVICE but is insisting on leaving the emergency department right now. I did advise her that she should not be alone and that she should obtain Narcan if at all possible. Patient's boyfriend is in the room and states he will monitor her for the remainder of the day as well as assist in getting Narcan. I also advised patient that we would like to check blood work to evaluate for liver failure and Tylenol coingestion. She states she is sure there is no Tylenol in the pills and is refusing blood work and EKG. Patient understands she is able to return to the emergency room at any point time for further management. She has capacity to make her own decisions and will sign out AMA. I did give her [facility] for substance abuse follow-up. - Vital Signs Vital signs: Temp Pulse Resp BP Pulse Ox 97.8 F 98 17 118/92 H 100 09/17/18 05:54 09/17/18 05:54 09/17/18 05:54 09/17/18 05:54 09/17/18 05:54 Discharge - Discharge Clinical Impression: Opiate overdose Qualifiers: Encounter type: initial encounter Injury intent: accidental or unintentional Qualified Code(s): T40.601A - Poisoning by unspecified narcotics, accidental (u nintentional), initial encounter Disposition: AGAINST MEDICAL ADVICE Instructions: Overdose / Ingestion ([facility]) Referrals: [facility] [Provider Group] - Follow up as needed
[2018-09-17 07:24] VITALS: BP 114/79
== END 2018-09-17 07:05 | disposition left against medical advice (07) ==
LOC: ER 05:54
DX: T40.601A Poisoning by unspecified narcotics, accidental (unintentional), initial encounter (principal); X58.XXXA Exposure to other specified factors, initial encounter; F17.200 Nicotine dependence, unspecified, uncomplicated
CPT/HCPCS: 99284

== ENCOUNTER 2018-09-27 22:22 | Emergency (ER) | payer SELFPAY ==
[2018-09-27 23:16] VITALS: BP 118/73
[2018-09-27] MEDS ORDERED: KETOROLAC TROMETHAMINE 60 MG/2 ML SDV IM ONE (23:46)
--- NOTE | 2018-09-27 23:52 | ER Document Report ---
HPI - HPI Time Seen by Provider: 09/27/18 23:32 Pain Level: 4 Notes: Patient is a 22-year-old female who presents the emergency department complaining of acute on chronic right shoulder pain which she has been having intermittently since she was 17 years old. Patient states that she had an injury when she was lifting weights at that time, but never had that evaluated. Patient states that flexion and abduction exercises will make her pain worse, but is not constant and not daily. Patient states that her flareup began a couple days ago and has since improved but does continue to have pain. Patient states that she needs to work this weekend and is wanting something to help with her pain. Historically speaking, patient was here about a week and a half ago for opiate overdose requiring Narcan. No other concerns or complaints. Denies any headache, fever, neck pain, URI, sore throat, chest pain, palpitations, syncope, cough, shortness of breath, wheeze, dyspnea, abdominal pain, nausea/vomiting/diarrhea, urinary retention, dysuria, hematuria, loss of control of bowel or bladder, numbness/tingling, saddle anesthesia, muscle paralysis/weakness, or rash. - ROS Systems Reviewed and Negative: Yes All other systems reviewed and negative - REPRODUCTIVE LMP: 09/26/18 Reproductive: DENIES: : - MUSCULOSKELETAL Musculoskeletal: REPORTS: Extremity pain - right shoulder Past Medical History - Social History Smoking Status: Current Every Day Smoker Chew tobacco use (# tins/day): No Drug Abuse: None Family History: Arthritis, Hypertension, Malignancy Patient has suicidal ideation: No Patient has homicidal ideation: No Pulmonary Medical History: Reports: Hx Bronchitis Renal/ Medical History: Denies: Hx Peritoneal Dialysis Psychiatric Medical History: Reports: Hx Depression Past Surgical History: Reports: Hx Oral Surgery, Other - Dr. face surgery 2 - Immunizations Hx Diphtheria, Pertussis, Tetanus Vaccination: Yes Vertical Provider Document - CONSTITUTIONAL Agree With Documented VS: Yes Notes: PHYSICAL EXAMINATION: GENERAL: Well-appearing, well-nourished and in no acute distress. NECK: Normal range of motion, supple without lymphadenopathy. Non-tender. Spurling negative. No rigidity/meningismus. LUNGS: Breath sounds clear to auscultation bilaterally and equal. No wheezes rales or rhonchi. HEART: Regular rate and rhythm without murmurs, rubs, gallops. Musculoskeletal: Rt shoulder: There is no erythema, warmth, ecchymosis, or deformity noted. FROM to passive/active. Strength 5+/5. + impingement test. Neg speed test. No crepitus. RC intact 5+/5 strength. N/V intact distal. Extremities: No cyanosis, clubbing, or edema b/l. Peripheral pulses 2+. Capi llary refill less than 3 seconds. NEUROLOGICAL: Normal speech, normal gait. Normal sensory, motor exams PSYCH: Normal mood, normal affect. SKIN: Warm, Dry, normal turgor, no rashes or lesions noted. - INFECTION CONTROL TRAVEL OUTSIDE OF THE [place] IN LAST 30 DAYS: No Course - Re-evaluation Re-evalutation: 09/27/18 23:49 Patient is an afebrile, well-hydrated, 22-year-old female who presents to the ED with Rt shoulder pain. The most likely differential which I reviewed with the patient is bursitis/impingement, labral tear, RC/AC involvement. Vitals are acceptable without any significant tachycardia, tachypnea, or hypoxia. PE is otherwise unremarkable for any neurovascular compromise, obvious tendon/ligament rupture, obvious fracture/dislocation, septic joint. Pt given toradol IM. Patient is nontoxic-appearing. No other labs or imaging warranted at this time based on H&P. Conservative measures otherwise for symptoms. Recheck with your PCM in 3-5 days. Consider consult orthopedics. Return to the ED with any worsening/concerning symptoms otherwise as reviewed in discharge. Patient is in agreement. - Vital Signs Vital signs: Temp Pulse Resp BP Pulse Ox 100 18 118/73 98 09/27/18 23:15 09/27/18 23:15 09/27/18 23:15 09/27/18 23:15 Discharge - Discharge Clinical Impression: Right shoulder pain Qualifiers: Chronicity: acute Qualified Code(s): M25.511 - Pain in right shoulder Condition: Stable Disposition: HOME, SELF-CARE Instructions: Exercise Program for the Shoulder ([facility]) Additional Instructions: Rest, Ice, Compression, Elevation Tylenol/ibuprofen as needed Light stretches daily Strength exercises as able Moist heat and massage may help F/u with your PCP in 3-5 days for a recheck Consider consult(s) with Orthopedics/physical therapy for ongoing/worsening symptoms Return to the ED with any worsening symptoms and/or development of fever, headache, chest pain, palpitations, syncope, shortness of breath, trouble breathing, abdominal pain, n/v/d, muscle weakness/paralysis, numbness/tingling, swelling, redness, or other worsening symptoms that are concerning to you. Prescriptions: Meloxicam [Mobic 7.5 Mg Tablet] 7.5 mg PO BID PRN #14 tablet PRN Reason: Referrals: [facility] [Provider Group] - Follow up as needed
== END 2018-09-28 00:15 | disposition home or self-care (01) ==
LOC: ER 22:22
DX: M25.511 Pain in right shoulder (principal); G89.29 Other chronic pain; F17.200 Nicotine dependence, unspecified, uncomplicated
CPT/HCPCS: 99283

== ENCOUNTER 2019-02-28 18:09 | Emergency (ER) | payer SELFPAY ==
[2019-02-28 18:22] VITALS: BP 105/66
== END 2019-02-28 19:52 | disposition left against medical advice (07) ==
LOC: ER 18:09
DX: Z53.21 Procedure and treatment not carried out due to patient leaving prior to being seen by health care provider (principal)

== ENCOUNTER 2019-03-01 15:50 | Emergency (ER) | payer SELFPAY ==
[2019-03-01 15:58] VITALS: BP 110/74
== END 2019-03-01 16:50 | disposition left against medical advice (07) ==
LOC: ER 15:50
DX: Z53.21 Procedure and treatment not carried out due to patient leaving prior to being seen by health care provider (principal)

== ENCOUNTER 2019-04-23 13:07 | Emergency (ER) | payer OTHER ==
[2019-04-23] MEDS ORDERED: NORMAL SALINE 1000 ML 1,000 ML IV ONE (14:13)
[2019-04-23 14:47] LABS: ABSOLUTE BASOPHILS # (AUTO) 0.1 10^3/uL (0.0-0.2); ABSOLUTE EOSINOPHILS # (AUTO) 0.1 10^3/uL (0.0-0.6); ABSOLUTE LYMPHOCYTES (AUTO) 1.6 10^3/uL (0.5-4.7); ABSOLUTE MONOCYTES (AUTO) 0.6 10^3/uL (0.1-1.4); ABSOLUTE NEUT (AUTO) 7.2 10^3/uL (1.7-8.2); BASOPHILS % (AUTO) 0.6 % (0-2); EOSINOPHILS % (AUTO) 0.9 % (0-6); HEMATOCRIT 44.2 % (36.0-47.0); MEAN CORPUSCULAR HEMOGLOBIN 30.5 pg (27.0-33.4); MEAN CORPUSCULAR HGB CONC 33.9 g/dL (32.0-36.0); MEAN CORPUSCULAR VOLUME 90 fl (80-97); MONOCYTES % (AUTO) 6.7 % (3-13); PLATELET COUNT 282 10^3/uL (150-450); RED BLOOD COUNT 4.91 10^6/uL (3.72-5.28); RED CELL DISTRIBUTION WIDTH 13.8 % (11.5-14.0); SEGMENTED NEUTROPHILS % (AUTO) 74.8 % (42-78); TOTAL CELLS COUNTED % (AUTO) 100 %; WHITE BLOOD COUNT 9.7 10^3/uL (4.0-10.5)
[2019-04-23 15:10] LABS: ANION GAP 9 (5-19); BLOOD UREA NITROGEN 10 mg/dL (7-20); CALCIUM 9.4 mg/dL (8.4-10.2); CARBON DIOXIDE 28 mmol/L (22-30); CHLORIDE 103 mmol/L (98-107); GLUCOSE 100 mg/dL (75-110); POTASSIUM 4.8 mmol/L (3.6-5.0)
[2019-04-23 15:17] VITALS: BP 118/88
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
== END 2019-04-23 15:17 | disposition home or self-care (01) ==
LOC: ER 13:07
DX: Z04.1 Encounter for examination and observation following transport accident (principal); T40.601A Poisoning by unspecified narcotics, accidental (unintentional), initial encounter; R41.3 Other amnesia; F17.210 Nicotine dependence, cigarettes, uncomplicated
CPT/HCPCS: 36415; 84703; 85025; 80048; J7030; 96360; 99284